=== PATIENT | female | born 1975 | race Caucasian/White ===

== ENCOUNTER 2021-01-09 14:29 | Emergency (ER) | payer OTHER, SELFPAY ==
--- NOTE | ~2021-01-09 | US_ITS ---
EXAMINATION: LEFT LOWER EXTREMITY DEEP VENOUS ULTRASOUND CLINICAL INFORMATION: Left lower extremity edema. Erythema. COMPARISON: None. TECHNIQUE: Duplex Doppler imaging with compression maneuvers were performed of the left lower extremity deep venous system. FINDINGS: The visualized common femoral, femoral and popliteal veins demonstrate normal compressibility and color flow without evidence of venous thrombosis. Visualized portions of the calf veins demonstrate normal color fill-in suggesting patency. There is no evidence of a Her's cyst. A few mildly prominent but morphologically normal-appearing lymph nodes are noted within the left groin, nonspecific but often times reactive. US/US venous duplex LE LT IMPRESSION: No evidence of deep venous thrombosis involving the left lower extremity.
[2021-01-09 14:32] VITALS: BP 149/62; PULSE 87; RESP 18; TEMP 36.8; O2SAT 97; BMI 39.4
[2021-01-09] MEDS: Acetaminophen 325 MG TABLET 650 MG PO (16:23)
[2021-01-09] MEDS: oxyCODONE HCl Immed Release 5 MG TABLET PO (16:23)
[2021-01-09] MEDS: Ibuprofen 800 MG TABLET PO (16:23)
--- NOTE | 2021-01-09 16:23 | ED_ITS ---
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 Denies any fevers, chest pain, shortness of breath, dyspnea on exertion, orthopnea, palpitations, any trauma, recent immobilization or surgery or history of DVT or PE or any other symptoms complaints or concerns at this time. Patient denies recent travel. Denies recent illness. Denies history of gout. MD Complaint: extremity pain Onset (ago): day(s) (Since last night worse today) Pain Consistency: constant Location: left and lower extremity Severity scale (1-10): >10 Quality: constant Radiation: none Relieving factors: nothing Exacerbating factors: weight bearing, walking and palpation Associated symptoms: denies other symptoms Related Data Previous Rx's Medication Instructions Recorded acetaminophen [Tylenol Extra 1,000 mg PO QID PRN #14 tab 01/09/21 Strength] cephalexin 500 mg PO BID 10 Days #20 cap 01/09/21 doxycycline monohydrate 100 mg PO BID 10 Days #20 cap 01/09/21 ibuprofen 800 mg PO Q8H PRN #14 tab 01/09/21 oxycodone 5 mg PO BID PRN #14 tab 01/09/21 Allergies Allergy/AdvReac Type Severity Reaction Status Date / Time insulin lispro Allergy Rash Verified 01/09/21 14:32 [From Humalog U-100 Insulin] Review of Systems Review of Systems: Constitutional : No Weight loss, No Fever, No Chills, No Night Sweats, No Fatigue, No Malaise ENT/Mouth : No Hearing loss, No Ear Pain, No Nasal Congestion, No Sinus Pain, No Hoarseness, No sore throat, No Rhinorrhea, No Swallowing Difficulty Eyes: No Eye Pain, No Swelling, No Redness, No Foreign Body, No Discharge, No Vision Changes Cardiovascular : No Chest Pain, No SOB, No Dyspnea on Exertion, No Orthopnea, No Edema, No Palpitations Respiratory : No Cough, No Sputum, No Wheezing, No Smoke Exposure, No Dyspnea Gastrointestinal : No Nausea, No Vomiting, No Diarrhea, No Constipation, No abdominal Pain, No Hematochezia, No Melena Genitourinary : no irregular bleeding, No Dysuria, No Urinary Frequency, No Hematuria, No Urinary Incontinence, No Urgency, No Flank Pain, No Urinary Flow Changes, No Hesitancy Musculoskeletal : + joint pain/swelling to left lower extremity, No Myalgias Skin : No Skin Lesions, No rash Neuro : No Weakness, No Numbness, No Paresthesias, No Loss of Consciousness, No Dizziness, No Headache Psych : No Anxiety/Panic, No Depression, No SI/HI/AH/VH, No Social Issues, Heme/Lymph: No Bruising, No Bleeding,No Lymphadenopathy Endocrine : No Polyuria, No Polydipsia, No Temperature Intolerance Yes all other systems are reviewed and are negative [facility] Past Medical History Attestation statement: The following information was validated with the patient. Medical History Compartment syndrome Social History Social History Advance Directives: No Advance Directives Information Provided: No Physical Exam Vital Signs: Vital Signs: Last Vital Signs Temp 98.2 F 01/09/21 14:32 Pulse 87 01/09/21 14:32 Resp 18 01/09/21 14:32 BP 149/62 H 01/09/21 14:32 Pulse Ox 97 01/09/21 14:32 Body Mass Index 39.4 vital signs have been reviewed as normal and appeared to be correct. Blood pressure hypertensive at 149/62. Heart rate normal. Respiration rate normal. Temperature normal. Oxygen saturation normal. Appearance: Alert. Oriented X3. No acute distress. Head: Normal external exam. Normocephalic. Atraumatic. Eyes: PERRLA. EOMI. Conjunctiva and sclera normal. Eyelids normal. ENT: Pharynx normal. Uvula midline. Moist mucous membranes. Neck: Normal inspection. Neck supple. FROM. No adenopathy. No meningeal signs. No neck mass noted. CVS: Normal heart rate and rhythm. Heart sound normal. No murmurs noted. Pulses normal throughout. Pulses intact to bilateral lower extremities including dorsalis pedis. Respiratory: No respiratory distress. Painless inspiration. Breath sounds normal. No wheezes/rales/rhonchi noted. Chest nontender. No accessory muscle usage noted or decreased air movement noted. Back: Full range of motion noted. Skin: Skin warm and dry. Normal skin color. Normal skin turgor. No rashes/lesions/lacerations noted. Extremities: See below for pictures of left lower extremity- To left lower extremity patient has moderate erythema with soft tissue swelling and moderate tenderness to palpation with associated calf tenderness. No pitting edema is noted. Right leg appears normal no signs of infection or tenderness is noted. No lower extremity edema to right leg. Otherwise all other Extremities exhibit normal range of motion and nontender. Neuro: Oriented X 3. No motor deficit. No sensory deficit. Reflexes normal. 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 - on exam patient is alert and oriented x3. Not in any acute distress. No focal neural deficits are noted. Patient is mildly hypertensive at 149/62 otherwise all other vitals are within normal limits. Patient is afebrile. She is not tachycardic. Lungs clear to auscultation. CV RRR. Abdomen soft and nontender. No tenderness to cervical/thoracic or lumbar spine. Patient noted to have moderate cellulitis to left lower extremity. No streaking/induration or fluctuance is noted. Patient has positive distal pulses bilaterally. No pitting edema to lower extremities. - shared medical decision making was made with myself, Dr. Obiren and the patient and we recommended admitting the patient although patient is reluctant and refusing reporting that her kids have been gone for over a week at their father's house and they returned tonight therefore she would rather go home tonight and return tomorrow for recheck although I explained to her that we will obtain labs give her some IV fluids and IV antibiotics then discuss this later on although patient is adamant she wants to go home and does not want to be admitted. - Plan: Labs including ESR/CRP, blood cultures, lactic acid. Obtain an ultrasound of left lower extremity. Provide a L of IV fluids, 650 mg of Tylenol, 800 mg of Motrin and 5 mg of oxycodone and 2 g of Rocephin then re- evaluate. MDM - Extremity (Nontraumatic) Medical Records Attestation: I reviewed the patient's medical records. Lab Data Attestation: I reviewed the patient's lab results. Critical Care Time Critical Care Time Critical Care Time: Yes Total Critical Care Time: 60 Attestation: I personally attest to this time spent taking care of the patient Discharge Plan Discharge Clinical Impression: Cellulitis Instructions: Cellulitis (ED) Prescriptions: New ibuprofen 800 mg tablet 800 mg PO Q8H PRN (Reason: pain) Qty: 14 RF: 0 acetaminophen [Tylenol Extra Strength] 500 mg tablet 1,000 mg PO QID PRN (Reason: fever or pain) Qty: 14 RF: 0 doxycycline monohydrate 100 mg capsule 100 mg PO BID 10 Days Qty: 20 RF: 0 cephalexin 500 mg capsule 500 mg PO BID 10 Days Qty: 20 RF: 0 oxycodone 5 mg tablet 5 mg PO BID PRN (Reason: pain) Qty: 14 RF: 0 Referrals: Carmen George PA [Emergency Midlevel Provider] - 1 day (For recheck cellulitis) Mark Morfin MD [Primary Care Provider] - 2 days Stand Alone Forms: Work/School Release Print Language: Maltese
[2021-01-09] MEDS: 0.9 % Sodium Chloride 1,000 ML 999 ML IVCONT (16:25)
[2021-01-09] MEDS: cefTRIAXone sodium 2 GM in 0.9 % Sodium Chloride 50 ML IV (16:26)
[2021-01-09 16:40] LABS: Basophils Absolute Auto 0.1 X10*3/uL (0.0-0.2); Basophils Percent Auto 0.7 % (0-2); Eosinophils Absolute Auto 0.2 X10*3/uL (0.0-0.4); Eosinophils Percent Auto 2.1 % (0-4); Hematocrit 39.7 % (37-47); Imm Gran Abs Auto 0.13 X10*3/uL (0.00-0.03); Imm Gran Pct Auto 1.2 % (0.0-0.4); Lymphocytes Percent Auto 18.2 % (20-40); MANUAL DIFF FLAG SCAN; Mean Corpuscular HGB Conc 32.7 g/dl (31.0-35.0); Mean Corpuscular Volume 88.4 fL (80-98); Mean Platelet Volume 10.4 fL (9.4-12.3); Monocytes Absolute Auto 1.7 X10*3/uL (0.1-1.2); Monocytes Percent Auto 14.9 % (2-11); Neutrophils Percent Auto 62.9 % (45-73); Platelet Count 214 X10*3/uL (160-400); Red Blood Count 4.49 X10*6/uL (4.20-5.50); Red Cell Distribution Width 12.3 % (11.0-16.0); SCAN SMEAR FLAG 1; White Blood Count 11.1 X10*3/uL (4.8-10.8)
[2021-01-09 16:41] VITALS: BP 123/68; PULSE 83; RESP 18; TEMP 36.7; O2SAT 96
[2021-01-09 16:47] LABS: Prothrombin Time 11.4 SEC (10.8-13.0)
[2021-01-09 16:56] LABS: Lactic Acid 1.9 mmol/L (0.5-2.0)
[2021-01-09 17:00] LABS: SLIDE REVIEW VERIFIED
[2021-01-09 17:08] LABS: Alanine Aminotransferase 17 U/L (0-31); Albumin Level 3.9 g/dL (3.5-5.0); Alkaline Phosphatase 74 U/L (39-117); Anion Gap 17 (12-20); Aspartate Amino Transferase 12 U/L (5-31); Bilirubin Direct 0.2 mg/dL (0.0-0.5); Bilirubin Total 0.5 mg/dL (0.0-1.0); Blood Urea Nitrogen 15 mg/dL (9-16); C Reactive Protein 19.39 mg/dL (< or = 0.50); Calcium 8.5 mg/dL (8.4-10.2); Carbon Dioxide 22 mmol/L (22-29); Chloride 97 mmol/L (96-108); Creatinine Clr Calc Pharmacy 74.9; Estimated Glomerular Filt Rate 52; Glucose Random 560 mg/dL (60-115); Magnesium 2.4 mg/dL (1.6-2.6); Potassium 4.3 mmol/L (3.3-5.1); Sodium 132 mmol/L (135-145); Total Protein 6.4 g/dL (6.5-8.0)
[2021-01-09 17:46] LABS: B Type Natriuretic Peptide < 10 pg/mL (<100)
[2021-01-09 17:47] LABS: Erythrocyte Sedimentation Rate 28 MM/HR (0-20)
== END 2021-01-09 17:46 | disposition home or self-care (01) ==
PROVIDERS: Physician Assistant Medical; Emergency Provider Emergency Medicine; PCP Internal Medicine
DX: R60.0 Localized edema (principal); L03.116 Cellulitis of left lower limb; M79.605 Pain in left leg; Z79.899 Other long term (current) drug therapy
CPT/HCPCS: 36415; 80048; 80076; 83605; 83735; 83880; 85025; 85610; 85652; 86140; 87040; 93971; 96361; 96365; 99283; 99285; J0696

== ENCOUNTER 2021-02-21 01:28 | Emergency (ER) | payer SELFPAY ==
[2021-02-21] VITALS (7 sets, daily range): BP systolic 111–151; BP diastolic 57–88; PULSE 94–116; RESP 12–21; TEMP 37.1–38.2; O2SAT 96–100; BMI 37.8
--- NOTE | ~2021-02-21 | CT_ITS ---
EXAMINATION: CT EXTREMITY WITHOUT AND WITH CONTRAST, LEFT LOWER CLINICAL INFORMATION: Redness and swelling. Concern for necrotizing fasciitis. COMPARISON: None TECHNIQUE: Multidetector CT imaging of the left lower extremity was performed from the knee through the ankle before and after the administration of 85 mL Omnipaque 350 intravenous contrast. Coronal and sagittal reformats are reviewed. This CT examination was performed using dose optimization techniques as appropriate, variously including the following: *Automated exposure control *Adjustment of mA and/or kV according to patient size (this includes techniques or standardized protocols for targeted exams where dose is matched to indication/reason for exam; i.e. extremities or head) *Use of iterative reconstruction technique DLP: 598 mGy-cm FINDINGS: There is subcutaneous fat stranding present along the anterior and lateral compartments of the lower leg as well as medial to the distal soleus. Cholecystectomy fluid present along the distal medial aspect of the tibia, superficial to the fascia overlying the flexor digitorum and hallucis longus tendons. No soft tissue gas is present. There is no fluid within the intermuscular fascial planes. Musculature of the left lower extremity is normal in bulk and attenuation. No drainable fluid collections. No periosteal reaction, or cortical destruction to suggest osteomyelitis. CT/CT lower leg LT wo/w con IMPRESSION: No CT imaging evidence of necrotizing fasciitis. Subcutaneous fat stranding present along the lateral lower calf and medial to the calf and ankle which could be compatible cellulitis. No drainable collection.
--- NOTE | 2021-02-21 02:21 | ED.SKABFB ---
HPI - Skin/Abscess/Foreign Bdy General Chief complaint: Skin/Abscess/Foreign Body Stated complaint: cellulitis in leg Time Seen by Provider: 02/21/21 01:57 Source: patient Mode of arrival: ambulatory History of Present Illness HPI narrative: 45-year-old female significant past medical history of type 1 diabetes who presents with onset of left lower extremity discomfort earlier in the evening yesterday just prior to going to sleep and then states that she was awoken from sleep at 1:00 a.m. with significant pain and then over the course of an hour until presentation had increasing redness and swelling and now is unable to bear weight on that extremity. She denies any numbness/tingling to that lower extremity and endorses full sensation but states she is having pain on both dorsal and plantar flexion as well as she cannot tolerate even touching the skin. Otherwise, she denies any fevers, chills at this time. Further history is that patient has had prior compartment syndrome of bilateral lower extremities in 2014 that she was told was associated with her exercise of [employer]. In addition, patient was seen this emergency room for cellulitis 01/09 and was placed on a course of p.o. antibiotics. Related Data Home Medications Medication Instructions Recorded Confirmed blood sugar diagnostic [Contour 02/21/21 02/21/21 Next Test Strips] hydroxyzine HCl 1 tab PO QID 02/21/21 02/21/21 insulin aspart U-100 [Novolog See Protocol SUBCUT TIDAC 02/21/21 02/21/21 U-100 Insulin aspart] lamotrigine 1 tab PO DAILY 02/21/21 02/21/21 paroxetine HCl 20 mg PO DAILY 02/21/21 02/21/21 Previous Rx's Medication Instructions Recorded cephalexin 500 mg PO QID 10 Days #40 cap 02/21/21 doxycycline hyclate 100 mg PO BID 10 Days #20 cap 02/21/21 Allergies Allergy/AdvReac Type Severity Reaction Status Date / Time insulin lispro Allergy Rash Verified 02/21/21 01:37 [From Humalog U-100 Insulin] Review of Systems Review of Systems: Pertinent positives and negatives as stated in HPI 10 point review of systems is otherwise negative. PMF Past Medical History Source: nursing notes reviewed Medical History Compartment syndrome Social History Social History Alcohol intake: never Smoking Status: Smoker, status unknown Use of substances other than those prescribed or required for medical reasons: No Advance Directives: No Advance Directives Information Provided: No Physical Exam Vital Signs: Vital Signs: Last Vital Signs Temp 98.7 F 02/21/21 04:56 Pulse 97 02/21/21 04:56 Resp 21 H 02/21/21 04:56 BP 111/57 L 02/21/21 04:56 Pulse Ox 96 02/21/21 04:56 Body Mass Index 37.8 VITAL SIGNS: Reviewed. GENERAL: Well developed, well nourished, moderate distress. HEAD: Normocephalic/atraumatic EYES: PERRLA, EOMI OROPHARYNX: no oral lesions noted, posterior pharynx clear NECK: Supple, no adenopathy LUNGS: Normal breath sounds. No adventitious sounds or accessory muscle use. SpO2<97> CARDIOVASCULAR: Regular rate and rhythm without noted murmurs ABDOMEN: Soft, non-tender, non-distended with bowel sounds. LEFT LOWER EXTREMITY: Edema, erythema, scars consistent with prior fasciotomy, palpable DP/PT, patient unable to tolerate touching the leg although no crepitus is appreciated, sensation intact leg is hot to touch, outlined area of redness with skin marker NEUROLOGIC: Alert and oriented x 4. Strength and sensation to light touch were grossly intact x 4. Course Course Course Narrative: 45-year-old female with history and clinical presentation highly concerning for possible necrotizing fasciitis given the rapid development and current symptoms. Low clinical suspicion for osteomyelitis, compartment syndrome. Review of all investigations consistent with sepsis, cellulitis of left lower leg. CT scan negative for necrotizing fasciitis and this case was discussed with surgical services. Case discussed with inpatient hospitalist who is agreeable for admission. Patient refusing to stay and discussed with patient the risks and benefits of signing out against medical advice given her current infection of the left lower extremity in conjunction with her underlying diabetes. She acknowledges that the risks include life-threatening infection and ultimately could lead to . MDM - Skin/Abscess/Foreign Bdy Lab Data Result diagrams: 02/21/21 02:19 02/21/21 02:19 Labs: Lab Results 05/09/21 05/09/21 05/09/21 Range/Units 02:19 02:19 02:19 WBC 21.9 H (4.8-10.8) X10*3/uL RBC 4.74 (4.20-5.50) X10*6/uL Hgb 13.9 (12.0-16.0) g/dl Hct 41.7 (37-47) % MCV 88.0 (80-98) fL MCH 29.3 (27.0-33.0) pg MCHC 33.3 (31.0-35.0) g/dl RDW 12.4 (11.0-16.0) % Plt Count 298 D (160-400) X10*3/uL MPV 9.8 (9.4-12.3) fL Immature Gran % (Auto) 0.7 H (0.0-0.4) % Neut % (Auto) 84.2 H (45-73) % Lymph % (Auto) 5.9 L (20-40) % [place] % (Auto) 8.1 (2-11) % Eos % (Auto) 0.6 (0-4) % Baso % (Auto) 0.5 (0-2) % Lymph # (Auto) 1.3 (1.2-4.9) X10*3/uL [place] # (Auto) 1.8 H (0.1-1.2) X10*3/uL Eos # (Auto) 0.1 (0.0-0.4) X10*3/uL Baso # (Auto) 0.1 (0.0-0.2) X10*3/uL Abs Immat Gran (auto) 0.15 H (0.00-0.03) X10*3/uL Absolute Neuts (auto) 18.5 H (2.0-8.3) X10*3/uL Absolute Nucleated RBC 0.000 (0.0-0.012) X10*3/uL Nucleated RBC % (auto) 0.0 (0.0-0.2) /100WBC Smear Tech's Comments VERIFIED ESR (0-20) MM/HR PT 11.1 (10.8-13.0) SEC INR 0.9 (0.9-1.1) Sodium 136 (135-145) mmol/L Potassium 4.4 (3.3-5.1) mmol/L Chloride 101 (96-108) mmol/L Carbon Dioxide 25 (22-29) mmol/L Anion Gap 14 (12-20) BUN 15 (9-16) mg/dL Creatinine 0.93 (0.5-1.4) mg/dL Estim Creat Clear Calc 89.5 Estimated GFR > 60 POC Glucose (60-115) mg/dL Random Glucose 157 H D (60-115) mg/dL Lactic Acid (0.5-2.0) mmol/L Calcium 9.2 D (8.4-10.2) mg/dL Total Bilirubin 0.6 (0.0-1.0) mg/dL AST 35 H D (5-31) U/L ALT 34 H (0-31) U/L Alkaline Phosphatase 78 (39-117) U/L Total Creatine Kinase 238 H (26-140) U/L C-Reactive Protein 1.25 H (< or = 0.50) mg/dL Total Protein 6.9 (6.5-8.0) g/dL Albumin 4.4 (3.5-5.0) g/dL Urine Color Urine Appearance Urine pH (5.0-8.0) Ur Specific Downs (1.005-1.025) Urine Protein (NEG-TRACE) MG/DL Urine Glucose (UA) (NEG) MG/DL Urine Ketones (NEG) MG/DL Urine Blood (NEG) Urine Nitrite (NEG) Ur Leukocyte Esterase (NEG) Acetone, Qual Negative (Negative) COVID-19 (RAMY) (Negative) COVID-19 Clin Com 02/21/21 02/21/21 02/21/21 Range/Units 02:19 02:19 02:19 WBC (4.8-10.8) X10*3/uL RBC (4.20-5.50) X10*6/uL Hgb (12.0-16.0) g/dl Hct (37-47) % MCV (80-98) fL MCH (27.0-33.0) pg MCHC (31.0-35.0) g/dl RDW (11.0-16.0) % Plt Count (160-400) X10*3/uL MPV (9.4-12.3) fL Immature Gran % (Auto) (0.0-0.4) % Neut % (Auto) (45-73) % Lymph % (Auto) (20-40) % [place] % (Auto) (2-11) % Eos % (Auto) (0-4) % Baso % (Auto) (0-2) % Lymph # (Auto) (1.2-4.9) X10*3/uL [place] # (Auto) (0.1-1.2) X10*3/uL Eos # (Auto) (0.0-0.4) X10*3/uL Baso # (Auto) (0.0-0.2) X10*3/uL Abs Immat Gran (auto) (0.00-0.03) X10*3/uL Absolute Neuts (auto) (2.0-8.3) X10*3/uL Absolute Nucleated RBC (0.0-0.012) X10*3/uL Nucleated RBC % (auto) (0.0-0.2) /100WBC Smear Tech's Comments ESR 7 (0-20) MM/HR PT (10.8-13.0) SEC INR (0.9-1.1) Sodium Cancelled (135-145) mmol/L Potassium Cancelled (3.3-5.1) mmol/L Chloride Cancelled (96-108) mmol/L Carbon Dioxide Cancelled (22-29) mmol/L Anion Gap Cancelled (12-20) BUN Cancelled (9-16) mg/dL Creatinine Cancelled (0.5-1.4) mg/dL Estim Creat Clear Calc Cancelled Estimated GFR Cancelled POC Glucose (60-115) mg/dL Random Glucose Cancelled (60-115) mg/dL Lactic Acid 1.8 (0.5-2.0) mmol/L Calcium Cancelled (8.4-10.2) mg/dL Total Bilirubin Cancelled (0.0-1.0) mg/dL AST Cancelled (5-31) U/L ALT Cancelled (0-31) U/L Alkaline Phosphatase Cancelled (39-117) U/L Total Creatine Kinase (26-140) U/L C-Reactive Protein (< or = 0.50) mg/dL Total Protein Cancelled (6.5-8.0) g/dL Albumin Cancelled (3.5-5.0) g/dL Urine Color Urine Appearance Urine pH (5.0-8.0) Ur Specific Downs (1.005-1.025) Urine Protein (NEG-TRACE) MG/DL Urine Glucose (UA) (NEG) MG/DL Urine Ketones (NEG) MG/DL Urine Blood (NEG) Urine Nitrite (NEG) Ur Leukocyte Esterase (NEG) Acetone, Qual (Negative) COVID-19 (RAMY) (Negative) COVID-19 Clin Com 02/21/21 02/21/21 02/21/21 Range/Units 02:55 03:17 03:25 WBC (4.8-10.8) X10*3/uL RBC (4.20-5.50) X10*6/uL Hgb (12.0-16.0) g/dl Hct (37-47) % MCV (80-98) fL MCH (27.0-33.0) pg MCHC (31.0-35.0) g/dl RDW (11.0-16.0) % Plt Count (160-400) X10*3/uL MPV (9.4-12.3) fL Immature Gran % (Auto) (0.0-0.4) % Neut % (Auto) (45-73) % Lymph % (Auto) (20-40) % [place] % (Auto) (2-11) % Eos % (Auto) (0-4) % Baso % (Auto) (0-2) % Lymph # (Auto) (1.2-4.9) X10*3/uL [place] # (Auto) (0.1-1.2) X10*3/uL Eos # (Auto) (0.0-0.4) X10*3/uL Baso # (Auto) (0.0-0.2) X10*3/uL Abs Immat Gran (auto) (0.00-0.03) X10*3/uL Absolute Neuts (auto) (2.0-8.3) X10*3/uL Absolute Nucleated RBC (0.0-0.012) X10*3/uL Nucleated RBC % (auto) (0.0-0.2) /100WBC Smear Tech's Comments ESR (0-20) MM/HR PT (10.8-13.0) SEC INR (0.9-1.1) Sodium (135-145) mmol/L Potassium (3.3-5.1) mmol/L Chloride (96-108) mmol/L Carbon Dioxide (22-29) mmol/L Anion Gap (12-20) BUN (9-16) mg/dL Creatinine (0.5-1.4) mg/dL Estim Creat Clear Calc Estimated GFR POC Glucose 115 (60-115) mg/dL Random Glucose (60-115) mg/dL Lactic Acid (0.5-2.0) mmol/L Calcium (8.4-10.2) mg/dL Total Bilirubin (0.0-1.0) mg/dL AST (5-31) U/L ALT (0-31) U/L Alkaline Phosphatase (39-117) U/L Total Creatine Kinase (26-140) U/L C-Reactive Protein (< or = 0.50) mg/dL Total Protein (6.5-8.0) g/dL Albumin (3.5-5.0) g/dL Urine Color YELLOW Urine Appearance CLEAR Urine pH 7.5 (5.0-8.0) Ur Specific Downs 1.015 (1.005-1.025) Urine Protein NEG (NEG-TRACE) MG/DL Urine Glucose (UA) NEG (NEG) MG/DL Urine Ketones NEG (NEG) MG/DL Urine Blood NEG (NEG) Urine Nitrite NEG (NEG) Ur Leukocyte Esterase NEG (NEG) Acetone, Qual (Negative) COVID-19 (RAMY) Negative (Negative) COVID-19 Clin Com See Note ECG Data Attestation: I personally reviewed and interpreted this ECG as follows: Prior ECG tracings: not available for review Interpretation: Normal sinus rhythm, HR-98, no evidence of acute ischemia, DE/QRS/QTC are within normal limits. Discharge Plan Discharge Clinical Impression: Sepsis, Cellulitis Patient Disposition: Left Against Medical Advice Instructions: Cellulitis (ED) Additional Instructions: 1. Please resume all home medications as prescribed. 2. Please follow-up with your primary care provider for re-evaluation in the next 24-48 hours. 3. You have been provided with oral antibiotics for your infection. Return to the emergency room for any acute worsening of your symptoms. Prescriptions: New doxycycline hyclate 100 mg capsule 100 mg PO BID 10 Days Qty: 20 RF: 0 cephalexin 500 mg capsule 500 mg PO QID 10 Days Qty: 40 RF: 0 No Action lamotrigine 150 mg tablet 1 tab PO DAILY RF: 0 (DME) Contour Next Test Strips Strip 1 strip MISCELLANEOUS [id number] RF: 0 insulin aspart U-100 [Novolog U-100 Insulin aspart] 100 unit/mL solution See Protocol sliding scale dose subcut TIDAC RF: 0 paroxetine HCl 20 mg tablet 20 mg PO DAILY RF: 0 hydroxyzine HCl 25 mg tablet 1 tab PO QID RF: 0 Referrals: Mark Morfin MD [Primary Care Provider] - 2 days (Re-evaluation and outpatient management after seen in the emergency department and diagnosed with sepsis and cellulitis however patient signed out AMA. She was provided with a 10 day course of doxycycline and cephalexin.) Stand Alone Forms: Against Medical Advice
[2021-02-21 02:27] LABS: Basophils Absolute Auto 0.1 X10*3/uL (0.0-0.2); Basophils Percent Auto 0.5 % (0-2); Eosinophils Absolute Auto 0.1 X10*3/uL (0.0-0.4); Eosinophils Percent Auto 0.6 % (0-4); Hematocrit 41.7 % (37-47); Hemoglobin 13.9 g/dl (12.0-16.0); Imm Gran Abs Auto 0.15 X10*3/uL (0.00-0.03); Imm Gran Pct Auto 0.7 % (0.0-0.4); Lymphocytes Absolute Auto 1.3 X10*3/uL (1.2-4.9); Lymphocytes Percent Auto 5.9 % (20-40); MANUAL DIFF FLAG SCAN; Mean Corpuscular HGB Conc 33.3 g/dl (31.0-35.0); Mean Corpuscular Hemoglobin 29.3 pg (27.0-33.0); Mean Platelet Volume 9.8 fL (9.4-12.3); Monocytes Absolute Auto 1.8 X10*3/uL (0.1-1.2); Monocytes Percent Auto 8.1 % (2-11); Neutrophils Absolute Auto 18.5 X10*3/uL (2.0-8.3); Neutrophils Percent Auto 84.2 % (45-73); Platelet Count 298 X10*3/uL (160-400); Red Blood Count 4.74 X10*6/uL (4.20-5.50); Red Cell Distribution Width 12.4 % (11.0-16.0); SCAN SMEAR FLAG 1; White Blood Count 21.9 X10*3/uL (4.8-10.8)
[2021-02-21 02:32] LABS: INTERNATIONAL NORM RATIO 0.9 (0.9-1.1); Prothrombin Time 11.1 SEC (10.8-13.0)
[2021-02-21] MEDS: Piperacillin Sodium/Tazobactam 3.375 GM in 0.9 % Sodium Chloride 50 ML IV (02:38)
[2021-02-21] MEDS: fentaNYL citrate/PF 100 MCG/2 ML VIAL 25 MCG IVPUSH (02:48)
[2021-02-21 02:52] LABS: Acetone, serum QL Negative (Negative)
[2021-02-21] MEDS: Clindamycin Phosphate/D5W 900 MG/50 ML PIGGYBACK 50 MG IV (02:58)
[2021-02-21 03:02] LABS: Alanine Aminotransferase 34 U/L (0-31); Albumin Level 4.4 g/dL (3.5-5.0); Alkaline Phosphatase 78 U/L (39-117); Anion Gap 14 (12-20); Aspartate Amino Transferase 35 U/L (5-31); Bilirubin Total 0.6 mg/dL (0.0-1.0); Blood Urea Nitrogen 15 mg/dL (9-16); Calcium 9.2 mg/dL (8.4-10.2); Carbon Dioxide 25 mmol/L (22-29); Chloride 101 mmol/L (96-108); Creatinine Clr Calc Pharmacy 89.5; Estimated Glomerular Filt Rate > 60; Glucose Random 157 mg/dL (60-115); Potassium 4.4 mmol/L (3.3-5.1); Sodium 136 mmol/L (135-145); Total Protein 6.9 g/dL (6.5-8.0)
--- NOTE | 2021-02-21 03:09 | PC.NURSE ---
Pt's left leg is extremely hot and tight to touch. reddened area marked by purple pen. Pt medicated for pain. Md aware of temperature and sepsis concerns. IVs: 18g Right fossa, 18g left wrist. IVF infusing well. Pt tolerating toileting on bed chen. Plan to go to ct at this time for imaging.
[2021-02-21 03:15] LABS: C Reactive Protein 1.25 mg/dL (< or = 0.50)
[2021-02-21 03:23] LABS: Glucose, Whole Blood 115 mg/dL (60-115)
[2021-02-21 03:24] LABS: SLIDE REVIEW VERIFIED
[2021-02-21 03:24] LABS: COVID-19 Test Negative (Negative); IDNOW Serial# 9DD0AD1C
[2021-02-21 03:30] LABS: Lactic Acid 1.8 mmol/L (0.5-2.0)
[2021-02-21 03:35] LABS: Glucose Urine UA NEG (NEG); Leukocyte Esterase Urine NEG (NEG); Nitrite Urine NEG (NEG); PH 7.5 (5.0-8.0); Specific Gravity - Urine 1.015 (1.005-1.025); Urine Blood NEG (NEG); Urine Ketones NEG (NEG); Urine Protein NEG (NEG-TRACE)
[2021-02-21 03:40] LABS: Erythrocyte Sedimentation Rate 7 MM/HR (0-20)
[2021-02-21] MEDS: Acetaminophen 325 MG TABLET 975 MG PO (03:40)
[2021-02-21 03:41] LABS: Appearance Urine CLEAR; Color Urine YELLOW
[2021-02-21] MEDS: vancomycin HCL 1,000 MG in 0.9 % Sodium Chloride 250 ML 270 MG IV (03:47)
[2021-02-21] MEDS: iohexoL 350 MG/ML 100 ML INFUS..BTL 85 ML IV (03:50)
--- NOTE | 2021-02-21 06:33 | HE.PHANOTE ---
CONFIRMED WITH OVERNIGHT RN THAT PATIENT RECEIVED ONLY 1GM OF VANCO DESPITE MULTIPLE ORDERS (DC'D PER MD) AND PYXIS PULLS
--- NOTE | 2021-02-21 07:57 | ECG_ITS ---
Test Reason : LEG PAIN Blood Pressure : / mmHG Vent. Rate : 098 BPM Atrial Rate : 098 BPM P-R Int : 138 ms QRS Dur : 084 ms QT Int : 332 ms P-R-T Axes : 062 035 057 degrees QTc Int : 423 ms Normal sinus rhythm Normal ECG No previous ECGs available Referred By: Kimberly Mcpherson Electronically Signed By:Jesus Hopkins
== END 2021-02-21 07:21 | disposition left against medical advice (07) ==
PROVIDERS: Emergency Provider Student in an Organized Health Care Education/Training Program; PCP Internal Medicine
DX: L03.116 Cellulitis of left lower limb (principal); A41.9 Sepsis, unspecified organism; Z79.899 Other long term (current) drug therapy; Z20.822 Contact with and (suspected) exposure to COVID-19
CPT/HCPCS: 36415; 73702; 80053; 81003; 82009; 82550; 82947; 83605; 85025; 85610; 85652; 86140; 87040; 87635; 93005; J2543; J3010; J3370; Q9967

== ENCOUNTER 2021-02-21 16:11 | Inpatient (IN) | payer OTHER, SELFPAY ==
[2021-02-21 16:27] VITALS: BP 123/58; PULSE 87; RESP 18; TEMP 37.6; O2SAT 96; BMI 37.8
[2021-02-21 18:00] VITALS: BP 112/80; PULSE 82; RESP 18; O2SAT 100
--- NOTE | 2021-02-21 18:43 | ED_ITS ---
HPI - General Adult General Chief complaint: General Medical Stated complaint: Leg infection Time Seen by Provider: 02/21/21 18:00 Source: patient Mode of arrival: ambulatory History of Present Illness HPI narrative: 45-year-old female PMHx of type 1 DM, compartment syndrome in bilateral lower extremities in 2015 s/p fasciotomy who presents with worsening LLE cellulitis and discomfort since yesterday. Patient was seen and treated in the ED yesterday for similar complaints with high concern for necrotizing fasciitis, diagnosed with cellulitis, admission was recommended however patient refused due to childcare issues. Denies taking prescribed p.o. antibiotic doses today. Reports subjective fever/chills in discomfort with ambulation/movement. Denies numbness, tingling, weakness Related Data Home Medications Medication Instructions Recorded Confirmed blood sugar diagnostic [Contour 02/21/21 02/21/21 Next Test Strips] hydroxyzine HCl 1 tab PO QID 02/21/21 02/21/21 insulin aspart U-100 [Novolog See Protocol SUBCUT TIDAC 02/21/21 02/21/21 U-100 Insulin aspart] lamotrigine 1 tab PO DAILY 02/21/21 02/21/21 paroxetine HCl 20 mg PO DAILY 02/21/21 02/21/21 Previous Rx's Medication Instructions Recorded cephalexin 500 mg PO QID 10 Days #40 cap 02/21/21 doxycycline hyclate 100 mg PO BID 10 Days #20 cap 02/21/21 Allergies Allergy/AdvReac Type Severity Reaction Status Date / Time insulin lispro Allergy Rash Verified 02/21/21 01:37 [From Humalog U-100 Insulin] Review of Systems Review of Systems: Constitutional: +Subj Fever, + Chills Cardiovascular: No Chest Pain, No SOB Respiratory: No Cough, No Dyspnea Gastrointestinal: No Nausea, No Vomiting, No Diarrhea, No Constipation, No Abdominal pain Musculoskeletal: + joint pain, No Myalgias, + Joint Swelling Skin: No Skin Lesions, + rash Neuro: No Weakness, No Numbness, No Paresthesias PMFSH Past Medical History Attestation statement: The following information was validated with the patient. Medical History (Updated 02/21/21 @ 19:50 by SHERIDAN Cardona) Compartment syndrome Diabetes Surgical History (Updated 02/21/21 @ 16:30 by Mica Gtz RN) H/O: hysterectomy Social History Social History Alcohol intake: current Alcohol intake frequency: other Smoking Status: Current every day smoker Smoked in Last 30 Days: Yes Use of substances other than those prescribed or required for medical reasons: No Advance Directives: No Advance Directives Information Provided: No Patient : No Physical Exam Vital Signs: Vital Signs: Last Vital Signs Temp 99.6 F 02/21/21 16:27 Pulse 82 02/21/21 18:00 Resp 18 02/21/21 18:00 BP 112/80 02/21/21 18:00 Pulse Ox 100 02/21/21 18:00 Body Mass Index 37.8 Const: Other: Appears in pain General: cooperative and healthy appearing Orientation/consciousness: patient oriented x3 Limitations: no limitations HENMT: Head: Yes normal to inspection Ears: hearing grossly normal bilaterally General nose exam: Normal external nose present Face and sinus: Yes normal facial exam Eyes: General: appearance normal, both eyes and all related structures EOM: EOMs intact bilaterally Neck: Neck: Yes normal visual inspection Resp: Effort & Inspection: normal respiratory effort Cardio: Rate: regular rate Peripheral pulses: posterior tibial pulses present and dorsalis pedis present GI: Inspection: Yes normal to inspection Skin: Wounds: no wounds Neuro: Other: Ambulating with limping gait General: patient oriented x3 Extrem: Other: Left lower extremity with mild edema, erythema which is extending past previously marked lines, previous scars, warmth to touch, +ttp, no crepitus/fluctuance or induration. Sensation intact to light touch, pulses intact Course Course Course Narrative: -improved leukocytosis of 13.9, CRP worsening from yesterday to 12.9. Lactic negative Plan to admit for further management Medical Decision Making MDM Narrative Medical decision making narrative: 45-year-old female PMHx of type 1 DM, compartment syndrome in bilateral lower extremities in 2015 s/p fasciotomy who presents with worsening LLE cellulitis and discomfort since yesterday. Patient was seen and treated in the ED yesterday for similar complaints with high concern for necrotizing fasciitis, diagnosed with cellulitis. On exam low-grade temp 99.6?, appears in pain, concern for worsening cellulitis. No evidence of necrotizing fasciitis on CT yesterday. Compartments soft Plan: Labs, lactic, blood cultures, IV antibiotics, admission Lab Data Result diagrams: 02/21/21 18:39 02/21/21 18:39 Labs: Lab Results 02/21/21 02/21/21 02/21/21 Range/Units 18:38 18:38 18:39 WBC 13.9 H (4.8-10.8) X10*3/uL RBC 4.50 (4.20-5.50) X10*6/uL Hgb 13.1 (12.0-16.0) g/dl Hct 39.8 (37-47) % MCV 88.4 (80-98) fL MCH 29.1 (27.0-33.0) pg MCHC 32.9 (31.0-35.0) g/dl RDW 12.5 (11.0-16.0) % Plt Count 251 (160-400) X10*3/uL MPV 9.6 (9.4-12.3) fL Immature Gran % (Auto) 0.5 H (0.0-0.4) % Neut % (Auto) 76.1 H (45-73) % Lymph % (Auto) 11.8 L (20-40) % [place] % (Auto) 10.0 (2-11) % Eos % (Auto) 1.0 (0-4) % Baso % (Auto) 0.6 (0-2) % Lymph # (Auto) 1.6 (1.2-4.9) X10*3/uL [place] # (Auto) 1.4 H (0.1-1.2) X10*3/uL Eos # (Auto) 0.1 (0.0-0.4) X10*3/uL Baso # (Auto) 0.1 (0.0-0.2) X10*3/uL Abs Immat Gran (auto) 0.07 H (0.00-0.03) X10*3/uL Absolute Neuts (auto) 10.5 H (2.0-8.3) X10*3/uL Absolute Nucleated RBC 0.000 (0.0-0.012) X10*3/uL Nucleated RBC % (auto) 0.0 (0.0-0.2) /100WBC Hold Blue Top Sodium (135-145) mmol/L Potassium (3.3-5.1) mmol/L Chloride (96-108) mmol/L Carbon Dioxide (22-29) mmol/L Anion Gap (12-20) BUN (9-16) mg/dL Creatinine (0.5-1.4) mg/dL Estim Creat Clear Calc Estimated GFR Random Glucose (60-115) mg/dL Lactic Acid 0.8 (0.5-2.0) mmol/L Calcium (8.4-10.2) mg/dL Magnesium 2.2 (1.6-2.6) mg/dL Total Bilirubin (0.0-1.0) mg/dL Direct Bilirubin (0.0-0.5) mg/dL AST (5-31) U/L ALT (0-31) U/L Alkaline Phosphatase (39-117) U/L C-Reactive Protein (< or = 0.50) mg/dL Total Protein (6.5-8.0) g/dL Albumin (3.5-5.0) g/dL COVID-19 ([facility]) (Negative) COVID-19 Clin Com 02/21/21 02/21/21 02/21/21 Range/Units 18:39 18:39 18:39 WBC (4.8-10.8) X10*3/uL RBC (4.20-5.50) X10*6/uL Hgb (12.0-16.0) g/dl Hct (37-47) % MCV (80-98) fL MCH (27.0-33.0) pg MCHC (31.0-35.0) g/dl RDW (11.0-16.0) % Plt Count (160-400) X10*3/uL MPV (9.4-12.3) fL Immature Gran % (Auto) (0.0-0.4) % Neut % (Auto) (45-73) % Lymph % (Auto) (20-40) % [place] % (Auto) (2-11) % Eos % (Auto) (0-4) % Baso % (Auto) (0-2) % Lymph # (Auto) (1.2-4.9) X10*3/uL [place] # (Auto) (0.1-1.2) X10*3/uL Eos # (Auto) (0.0-0.4) X10*3/uL Baso # (Auto) (0.0-0.2) X10*3/uL Abs Immat Gran (auto) (0.00-0.03) X10*3/uL Absolute Neuts (auto) (2.0-8.3) X10*3/uL Absolute Nucleated RBC (0.0-0.012) X10*3/uL Nucleated RBC % (auto) (0.0-0.2) /100WBC Hold Blue Top SEE NOTE Sodium 135 (135-145) mmol/L Potassium 4.0 (3.3-5.1) mmol/L Chloride 102 (96-108) mmol/L Carbon Dioxide 24 (22-29) mmol/L Anion Gap 13 (12-20) BUN 15 (9-16) mg/dL Creatinine 1.13 (0.5-1.4) mg/dL Estim Creat Clear Calc 73.7 Estimated GFR 53 Random Glucose 218 H D (60-115) mg/dL Lactic Acid (0.5-2.0) mmol/L Calcium 8.7 (8.4-10.2) mg/dL Magnesium (1.6-2.6) mg/dL Total Bilirubin 0.5 (0.0-1.0) mg/dL Direct Bilirubin 0.2 (0.0-0.5) mg/dL AST 18 D (5-31) U/L ALT 27 (0-31) U/L Alkaline Phosphatase 73 (39-117) U/L C-Reactive Protein 12.94 H (< or = 0.50) mg/dL Total Protein 6.2 L (6.5-8.0) g/dL Albumin 3.9 (3.5-5.0) g/dL COVID-19 ([facility]) Negative (Negative) COVID-19 Clin Com See Note Discharge Plan Discharge Clinical Impression: Cellulitis Patient Disposition: Admitted As Inpatient Prescriptions: No Action lamotrigine 150 mg tablet 1 tab PO DAILY RF: 0 (DME) Contour Next Test Strips Strip 1 strip MISCELLANEOUS 4-5XD RF: 0 insulin aspart U-100 [Novolog U-100 Insulin aspart] 100 unit/mL solution See Protocol sliding scale dose subcut TIDAC RF: 0 paroxetine HCl 20 mg tablet 20 mg PO DAILY RF: 0 hydroxyzine HCl 25 mg tablet 1 tab PO QID RF: 0 doxycycline hyclate 100 mg capsule 100 mg PO BID 10 Days Qty: 20 RF: 0 cephalexin 500 mg capsule 500 mg PO QID 10 Days Qty: 40 RF: 0
[2021-02-21 18:45] LABS: MANUAL DIFF FLAG NO
[2021-02-21 18:48] LABS: Basophils Absolute Auto 0.1 X10*3/uL (0.0-0.2); Basophils Percent Auto 0.6 % (0-2); Eosinophils Absolute Auto 0.1 X10*3/uL (0.0-0.4); Hematocrit 39.8 % (37-47); Hemoglobin 13.1 g/dl (12.0-16.0); Imm Gran Abs Auto 0.07 X10*3/uL (0.00-0.03); Imm Gran Pct Auto 0.5 % (0.0-0.4); Lymphocytes Absolute Auto 1.6 X10*3/uL (1.2-4.9); Lymphocytes Percent Auto 11.8 % (20-40); Mean Corpuscular HGB Conc 32.9 g/dl (31.0-35.0); Mean Corpuscular Hemoglobin 29.1 pg (27.0-33.0); Mean Corpuscular Volume 88.4 fL (80-98); Mean Platelet Volume 9.6 fL (9.4-12.3); Monocytes Absolute Auto 1.4 X10*3/uL (0.1-1.2); Neutrophils Absolute Auto 10.5 X10*3/uL (2.0-8.3); Neutrophils Percent Auto 76.1 % (45-73); Platelet Count 251 X10*3/uL (160-400); Red Cell Distribution Width 12.5 % (11.0-16.0); White Blood Count 13.9 X10*3/uL (4.8-10.8)
[2021-02-21] MEDS: Piperacillin Sodium/Tazobactam 3.375 GM in 0.9 % Sodium Chloride 50 ML IV (18:58)
[2021-02-21 19:02] LABS: COVID-19 Test Negative (Negative); IDNOW Serial# 9DD0AD1C
[2021-02-21 19:06] LABS: Lactic Acid 0.8 mmol/L (0.5-2.0)
[2021-02-21] MEDS: Clindamycin Phosphate/D5W 900 MG/50 ML PIGGYBACK 50 MG IV (19:12)
[2021-02-21 19:13] LABS: Magnesium 2.2 mg/dL (1.6-2.6)
[2021-02-21 19:25] LABS: Alanine Aminotransferase 27 U/L (0-31); Albumin Level 3.9 g/dL (3.5-5.0); Alkaline Phosphatase 73 U/L (39-117); Anion Gap 13 (12-20); Aspartate Amino Transferase 18 U/L (5-31); Bilirubin Direct 0.2 mg/dL (0.0-0.5); Bilirubin Total 0.5 mg/dL (0.0-1.0); Blood Urea Nitrogen 15 mg/dL (9-16); C Reactive Protein 12.94 mg/dL (< or = 0.50); Calcium 8.7 mg/dL (8.4-10.2); Carbon Dioxide 24 mmol/L (22-29); Chloride 102 mmol/L (96-108); Creatinine Clr Calc Pharmacy 73.7; Estimated Glomerular Filt Rate 53; Glucose Random 218 mg/dL (60-115); Sodium 135 mmol/L (135-145); Total Protein 6.2 g/dL (6.5-8.0)
--- NOTE | 2021-02-21 19:26 | PC.NURSE ---
Patient ordered ice cream for herself, but made aware of NPO status. Ice cream placed in ED freezer with patient label as requested.
[2021-02-21] MEDS: vancomycin HCL 1,250 MG in 0.9 % Sodium Chloride 250 ML 166.67 MG IV (19:39)
[2021-02-21 20:00] LABS: Erythrocyte Sedimentation Rate 16 MM/HR (0-20)
--- NOTE | 2021-02-21 20:20 | PM.IMHP ---
History of Present Illness Date of Service: 02/21/21 Chief Complaint: Leg pain This is a 45-year-old female with past medical history of compartment syndrome, diabetes, presents to the hospital with complaints of left lower extremity erythema, pain and swelling. Patient reports that the symptoms started about 2 days ago after a bowling tournament, she is having progressive redness, worsening pain, and some swelling. She denies any fever but has chills, no abdominal pain nausea or diarrhea, no urinary symptoms. No chest pain or palpitations. No shortness of breath or cough. No headache change in vision. Patient did presents to the hospital on 02/21 but had to leave AMA to take care of her kids and returned few hours later. At the initial presentation she had a temp of a 100.7?, tachycardia, normal respiratory rate and stable blood pressure For WBC count of 13.9, C-reactive protein of 12.9, COVID-19 negative, otherwise unremarkable Patient will management of cellulitis Review of Systems Review of Systems: Yes all other systems are reviewed and are negative [facility] Medical History (Updated 02/22/21 @ 06:04 by Humaira Serna MD) Anxiety Compartment syndrome Diabetes Hyperlipidemia Surgical History H/O: hysterectomy Social History Household Members: Children Housing: Apartment Do you presently have visiting nurse or other home services: No Alcohol intake: current Alcohol intake frequency: other Smoking Status: Current every day smoker Tobacco Type: Cigarette Packs Per Day: 0.5 Cigarettes Per Day: 10.0 Smoked in Last 30 Days: Yes Patient Interested in Nicotine Replacement: No Patient Given Instructions on How to Stop Smoking: No Date Education Initiated: 02/21/21 Use of substances other than those prescribed or required for medical reasons: No Have you been hit, kicked, punched, or otherwise hurt by someone within the past year? If so, by whom?: No Do you feel safe in your current relationship?: Yes Is there a partner from a previous relationship who is making you feel unsafe now?: No Are you made to feel afraid or neglected: No Advance Directives: No Advance Directives Information Provided: No Do you have thoughts of harming others: None Recently lost weight without trying: No Eating poorly because of decreased appetite: No Nutrition Risks: No Nutritional Risk Patient : No Meds Allergies Allergy/AdvReac Type Severity Reaction Status Date / Time insulin lispro Allergy Rash Verified 02/21/21 01:37 [From Humalog U-100 Insulin] Active Medications: Current Medications Generic Name Dose Route Start Last Admin Trade Name Freq PRN Reason Stop Dose Admin Acetaminophen 650 mg 02/21/21 20:06 Acetaminophen 325 Mg Tablet PO Q6H PRN Pain, Mild (Pain Scale 1-3) Docusate Sodium 100 mg 02/21/21 20:06 Docusate Sodium 100 Mg Capsule PO DAILY PRN Constipation Enoxaparin Sodium 40 mg 02/21/21 20:06 Enoxaparin Sodium 40 Mg/0.4 Ml Syringe SUBCUT Q24H [facility] Hydroxyzine HCl 25 mg 02/21/21 21:00 Hydroxyzine Hcl 25 Mg Tablet PO QID [facility] Ceftriaxone Sodium 1 gm/ 50 mls @ 100 mls/hr 02/21/21 20:06 Sodium Chloride IV Q24H [facility] Insulin Human Lispro 0 unit 02/21/21 21:00 Insulin Lispro 100 Unit/Ml 3 [facility] Protocol Lamotrigine 150 mg 02/22/21 09:00 Lamotrigine 25 Mg Tablet PO DAILY [facility] Ondansetron HCl 4 mg 02/21/21 20:06 Ondansetron Hcl 4 Mg/2 Ml Vial IVPUSH Q8H PRN Nausea and Vomiting Oxycodone HCl 5 mg 02/21/21 20:06 Oxycodone Hcl Immed Release 5 Mg Tablet PO Q6H PRN Pain, Severe (Pain Scale 7-10) Paroxetine HCl 20 mg 02/22/21 09:00 Paroxetine Hcl 20 Mg Tablet PO DAILY [facility] Sodium Chloride 3 ml 02/22/21 00:00 0.9 % Sodium Chloride Flush 3 [facility] Medications Medication Instructions Recorded Confirmed Last Taken Type blood sugar diagnostic [Contour 02/21/21 02/21/21 Unknown History Next Test Strips] hydroxyzine HCl 1 tab PO QID 02/21/21 02/21/21 Unknown History insulin aspart U-100 [Novolog See Protocol SUBCUT TIDAC 02/21/21 02/21/21 Unknown History U-100 Insulin aspart] lamotrigine 1 tab PO DAILY 02/21/21 02/21/21 Unknown History paroxetine HCl 20 mg PO DAILY 02/21/21 02/21/21 Unknown History Physical Exam Vital Signs and Narrative: Vital Signs: Last Vital Signs Temp 99.6 F 02/21/21 16:27 Pulse 82 02/21/21 18:00 Resp 18 02/21/21 18:00 BP 112/80 02/21/21 18:00 Pulse Ox 100 02/21/21 18:00 Body Mass Index 37.8 Const: General: cooperative and no acute distress Orientation/consciousness: patient oriented x3 Eyes: General: appearance normal, both eyes and all related structures Resp: Effort & Inspection: normal respiratory effort and able to speak in complete sentences Cardio: Rate: regular rate Rhythm: regular rhythm GI: Palpation (GI): Soft to palpation Auscultation: normal bowel sounds Skin: General skin exam: no rashes or lesions noted Neuro: General: patient oriented x3 Cognition (Neuro): normal cognition Extrem: Other: Left lower extremity erythema, tenderness, warmth, and some swelling Results Labs CBC and Chem 7: 02/22/21 04:50 02/21/21 18:39 Labs: Laboratory Results - last 24 hr 02/21/21 02/21/21 02/21/21 18:38 18:38 18:39 MCV 88.4 MCH 29.1 MCHC 32.9 RDW 12.5 Plt Count 251 MPV 9.6 Immature Gran % (Auto) 0.5 H Neut % (Auto) 76.1 H Lymph % (Auto) 11.8 L [place] % (Auto) 10.0 Eos % (Auto) 1.0 Baso % (Auto) 0.6 Lymph # (Auto) 1.6 [place] # (Auto) 1.4 H Eos # (Auto) 0.1 Baso # (Auto) 0.1 Abs Immat Gran (auto) 0.07 H Absolute Neuts (auto) 10.5 H Absolute Nucleated RBC 0.000 Nucleated RBC % (auto) 0.0 ESR Hold Blue Top Anion Gap Estim Creat Clear Calc Estimated GFR Random Glucose Lactic Acid 0.8 Calcium Magnesium 2.2 Total Bilirubin Direct Bilirubin AST ALT Alkaline Phosphatase C-Reactive Protein Total Protein Albumin COVID-19 ([facility]) COVID-19 Clin Com 02/21/21 02/21/21 02/21/21 18:39 18:39 18:39 MCV MCH MCHC RDW Plt Count MPV Immature Gran % (Auto) Neut % (Auto) Lymph % (Auto) [place] % (Auto) Eos % (Auto) Baso % (Auto) Lymph # (Auto) [place] # (Auto) Eos # (Auto) Baso # (Auto) Abs Immat Gran (auto) Absolute Neuts (auto) Absolute Nucleated RBC Nucleated RBC % (auto) ESR 16 Hold Blue Top SEE NOTE Anion Gap 13 Estim Creat Clear Calc 73.7 Estimated GFR 53 Random Glucose 218 H D Lactic Acid Calcium 8.7 Magnesium Total Bilirubin 0.5 Direct Bilirubin 0.2 AST 18 D ALT 27 Alkaline Phosphatase 73 C-Reactive Protein 12.94 H Total Protein 6.2 L Albumin 3.9 COVID-19 ([facility]) COVID-19 Clin Com 02/21/21 18:39 MCV MCH MCHC RDW Plt Count MPV Immature Gran % (Auto) Neut % (Auto) Lymph % (Auto) [place] % (Auto) Eos % (Auto) Baso % (Auto) Lymph # (Auto) [place] # (Auto) Eos # (Auto) Baso # (Auto) Abs Immat Gran (auto) Absolute Neuts (auto) Absolute Nucleated RBC Nucleated RBC % (auto) ESR Hold Blue Top Anion Gap Estim Creat Clear Calc Estimated GFR Random Glucose Lactic Acid Calcium Magnesium Total Bilirubin Direct Bilirubin AST ALT Alkaline Phosphatase C-Reactive Protein Total Protein Albumin COVID-19 ([facility]) Negative COVID-19 Clin Com See Note Assessment and Plan (1) Cellulitis: Qualifiers: Laterality: left Site of cellulitis: extremity Site of cellulitis of extremity: lower extremity Qualified Code(s): L03.116 - Cellulitis of left lower limb Status: Acute This is a 45-year-old female with past medical history of of compartment syndrome presents the hospital leg pain, redness, and swelling # left lower extremity cellulitis - no evidence of compartment syndrome given her history - presented earlier in the day to the ED with sepsis like picture including tachycardia, leukocytosis, and fever - at this time will start on IV ceftriaxone - follow cultures # diabetes - will start on low-dose sliding scale insulin - diabetic diet # anxiety and depression - continue paroxetine and hydroxyzine DVT prophylaxis: Lovenox
[2021-02-21] MEDS: hydrOXYzine HCL 25 MG TABLET PO (21:48)
[2021-02-21] MEDS: cefTRIAXone sodium 1 GM in 0.9 % Sodium Chloride 50 ML IV (21:50)
[2021-02-21] MEDS: Enoxaparin Sodium 40 MG/0.4 ML SYRINGE SUBCUT (21:51)
[2021-02-21] MEDS: 0.9 % Sodium Chloride Flush 3 ML SYRINGE IVFLUSH (21:59)
[2021-02-21 23:59] VITALS: BP 149/78; PULSE 78; RESP 20; TEMP 36.7; O2SAT 96
[2021-02-22 01:05] LABS: Glucose, Whole Blood 220 mg/dL (60-115)
[2021-02-22 04:00] VITALS: BP 130/69; PULSE 69; RESP 20; TEMP 36.4; O2SAT 96
[2021-02-22 05:33] LABS: MANUAL DIFF FLAG NO
[2021-02-22 05:39] LABS: Basophils Absolute Auto 0.1 X10*3/uL (0.0-0.2); Basophils Percent Auto 0.8 % (0-2); Eosinophils Absolute Auto 0.3 X10*3/uL (0.0-0.4); Eosinophils Percent Auto 2.4 % (0-4); Hematocrit 40.3 % (37-47); Imm Gran Pct Auto 0.9 % (0.0-0.4); Lymphocytes Percent Auto 19.3 % (20-40); Mean Corpuscular HGB Conc 32.3 g/dl (31.0-35.0); Mean Corpuscular Hemoglobin 28.5 pg (27.0-33.0); Mean Corpuscular Volume 88.4 fL (80-98); Mean Platelet Volume 9.8 fL (9.4-12.3); Monocytes Absolute Auto 1.4 X10*3/uL (0.1-1.2); Monocytes Percent Auto 13.5 % (2-11); Neutrophils Absolute Auto 6.7 X10*3/uL (2.0-8.3); Neutrophils Percent Auto 63.1 % (45-73); Platelet Count 257 X10*3/uL (160-400); Red Blood Count 4.56 X10*6/uL (4.20-5.50); Red Cell Distribution Width 12.3 % (11.0-16.0); White Blood Count 10.6 X10*3/uL (4.8-10.8)
[2021-02-22 06:05] LABS: Anion Gap 13 (12-20); Blood Urea Nitrogen 12 mg/dL (9-16); Calcium 8.4 mg/dL (8.4-10.2); Carbon Dioxide 24 mmol/L (22-29); Chloride 104 mmol/L (96-108); Estimated Glomerular Filt Rate > 60; Glucose Random 117 mg/dL (60-115); Potassium 3.9 mmol/L (3.3-5.1); Sodium 137 mmol/L (135-145)
[2021-02-22 07:43] LABS: Glucose, Whole Blood 120 mg/dL (60-115)
[2021-02-22 08:00] VITALS: BP 138/67; PULSE 67; RESP 20; TEMP 36.5; O2SAT 96
[2021-02-22] MEDS: PARoxetine HCL 20 MG TABLET PO (09:20)
[2021-02-22] MEDS: hydrOXYzine HCL 25 MG TABLET PO ×4 (09:20→21:03)
[2021-02-22] MEDS: Piperacillin Sodium/Tazobactam 3.375 GM in 0.9 % Sodium Chloride 50 ML IV ×3 (09:20→21:03)
[2021-02-22] MEDS: 0.9 % Sodium Chloride Flush 3 ML SYRINGE IVFLUSH ×3 (09:20→21:13)
[2021-02-22] MEDS: lamoTRIgine 25 MG TABLET 150 MG PO (09:21)
[2021-02-22] MEDS: vancomycin HCL 1,250 MG in 0.9 % Sodium Chloride 250 ML 166.67 MG IV ×2 (10:11→21:29)
[2021-02-22 11:32] LABS: Glucose, Whole Blood 84 mg/dL (60-115)
[2021-02-22] MEDS: Subcutaneous Insulin Pump 1 EACH SUBCUT ×3 (11:52→21:15)
[2021-02-22 12:00] VITALS: BP 153/70; PULSE 74; RESP 20; TEMP 36.5; O2SAT 95
--- NOTE | 2021-02-22 15:26 | HO.PM.IMPN ---
Subjective Subjective Date of Service: 02/22/21 Interval History: c/o redness/pain LLE no fever since T 100.7 yesterday morning at 02:30 no N/V Physical Exam Vital Signs: Vital Signs: Last Vital Signs Temp 97.7 F 02/22/21 12:00 Pulse 74 02/22/21 12:00 Resp 20 02/22/21 12:00 BP 153/70 H 02/22/21 12:00 Pulse Ox 95 02/22/21 12:00 Body Mass Index 37.8 Gen: in no acute distress HEENT: sclera anicteric, moist mucus membranes Neck: supple Lungs: clear to auscultation bilaterally Heart: regular rate and rhythm, no murmurs Abd: soft, non-tender, non-distended Ext: no edema Skin: LLE erythema without purulence or drainage Neuro: alert and oriented x3, no focal findings Psych: appropriate affect Objective Data Current Medications Generic Name Dose Route Start Last Admin Trade Name Freq PRN Reason Stop Dose Admin Acetaminophen 650 mg 02/21/21 20:06 Acetaminophen 325 Mg Tablet PO Q6H PRN Pain, Mild (Pain Scale 1-3) Docusate Sodium 100 mg 02/21/21 20:06 Docusate Sodium 100 Mg Capsule PO DAILY PRN Constipation Enoxaparin Sodium 40 mg 02/21/21 20:06 02/21/21 21:51 Enoxaparin Sodium 40 Mg/0.4 Ml Syringe SUBCUT 40 mg Q24H [facility] Administration Hydroxyzine HCl 25 mg 02/21/21 21:00 02/22/21 12:55 Hydroxyzine Hcl 25 Mg Tablet PO 25 mg QID [facility]INN Administration Piperacillin Sod/Tazobactam 50 mls @ 100 mls/hr 02/22/21 08:45 02/22/21 15:18 Sod 3.375 gm/ Sodium Chloride IV 100 mls/hr Q6H [facility] Administration Vancomycin HCl 1,250 mg/ 250 mls @ 166.667 mls/hr 02/22/21 09:00 02/22/21 12:06 Sodium Chloride IV Infused Q12H [facility] Infusion Insulin Pump 1 each 02/22/21 11:30 02/22/21 11:52 Subcutaneous Insulin Pump SUBCUT 1 each QIDACHS ERINN Administration Protocol Lamotrigine 150 mg 02/22/21 09:00 02/22/21 09:21 Lamotrigine 25 Mg Tablet PO 150 mg DAILY [facility] Administration Ondansetron HCl 4 mg 02/21/21 20:06 Ondansetron Hcl 4 Mg/2 Ml Vial IVPUSH Q8H PRN Nausea and Vomiting Oxycodone HCl 5 mg 02/21/21 20:06 Oxycodone Hcl Immed Release 5 Mg Tablet PO Q6H PRN Pain, Severe (Pain Scale 7-10) Paroxetine HCl 20 mg 02/22/21 09:00 02/22/21 09:20 Paroxetine Hcl 20 Mg Tablet PO 20 mg DAILY [facility] Administration Pharmacy Consult 1 each 02/22/21 08:38 Consult Rx Vancomycin Dosing MISCELLANE DAILY PRN Consult order Sodium Chloride 3 ml 02/22/21 00:00 02/22/21 15:21 0.9 % Sodium Chloride Flush 3 Ml Syringe IVFLUSH 3 ml [facility]SHIFT [facility] Administration Labs CBC & Chem 7: 02/22/21 04:50 02/22/21 04:50 Labs: Laboratory Results - last 24 hr 02/21/21 02/21/21 02/21/21 18:38 18:38 18:39 WBC 13.9 H RBC 4.50 Hgb 13.1 Hct 39.8 MCV 88.4 MCH 29.1 MCHC 32.9 RDW 12.5 Plt Count 251 MPV 9.6 Immature Gran % (Auto) 0.5 H Neut % (Auto) 76.1 H Lymph % (Auto) 11.8 L [place] % (Auto) 10.0 Eos % (Auto) 1.0 Baso % (Auto) 0.6 Lymph # (Auto) 1.6 [place] # (Auto) 1.4 H Eos # (Auto) 0.1 Baso # (Auto) 0.1 Abs Immat Gran (auto) 0.07 H Absolute Neuts (auto) 10.5 H Absolute Nucleated RBC 0.000 Nucleated RBC % (auto) 0.0 ESR Hold Blue Top Sodium Potassium Chloride Carbon Dioxide Anion Gap BUN Creatinine Estim Creat Clear Calc Estimated GFR POC Glucose Random Glucose Lactic Acid 0.8 Calcium Magnesium 2.2 Total Bilirubin Direct Bilirubin AST ALT Alkaline Phosphatase C-Reactive Protein Total Protein Albumin COVID-19 ([facility]) COVID-19 Clin Com 02/21/21 02/21/21 02/21/21 18:39 18:39 18:39 WBC RBC Hgb Hct MCV MCH MCHC RDW Plt Count MPV Immature Gran % (Auto) Neut % (Auto) Lymph % (Auto) [place] % (Auto) Eos % (Auto) Baso % (Auto) Lymph # (Auto) [place] # (Auto) Eos # (Auto) Baso # (Auto) Abs Immat Gran (auto) Absolute Neuts (auto) Absolute Nucleated RBC Nucleated RBC % (auto) ESR 16 Hold Blue Top SEE NOTE Sodium 135 Potassium 4.0 Chloride 102 Carbon Dioxide 24 Anion Gap 13 BUN 15 Creatinine 1.13 Estim Creat Clear Calc 73.7 Estimated GFR 53 POC Glucose Random Glucose 218 H D Lactic Acid Calcium 8.7 Magnesium Total Bilirubin 0.5 Direct Bilirubin 0.2 AST 18 D ALT 27 Alkaline Phosphatase 73 C-Reactive Protein 12.94 H Total Protein 6.2 L Albumin 3.9 COVID-19 ([facility]) COVID-[employer] 02/21/21 02/21/21 02/22/21 18:39 22:15 04:50 WBC 10.6 RBC 4.56 Hgb 13.0 Hct 40.3 MCV 88.4 MCH 28.5 MCHC 32.3 RDW 12.3 Plt Count 257 MPV 9.8 Immature Gran % (Auto) 0.9 H Neut % (Auto) 63.1 Lymph % (Auto) 19.3 L [place] % (Auto) 13.5 H Eos % (Auto) 2.4 Baso % (Auto) 0.8 Lymph # (Auto) 2.0 [place] # (Auto) 1.4 H Eos # (Auto) 0.3 Baso # (Auto) 0.1 Abs Immat Gran (auto) 0.10 H Absolute Neuts (auto) 6.7 Absolute Nucleated RBC 0.000 Nucleated RBC % (auto) 0.0 ESR Hold Blue Top Sodium Potassium Chloride Carbon Dioxide Anion Gap BUN Creatinine Estim Creat Clear Calc Estimated GFR POC Glucose 220 H Random Glucose Lactic Acid Calcium Magnesium Total Bilirubin Direct Bilirubin AST ALT Alkaline Phosphatase C-Reactive Protein Total Protein Albumin COVID-19 ([facility]) Negative COVID-[employer] See Note 02/22/21 02/22/21 02/22/21 04:50 07:37 11:27 WBC RBC Hgb Hct MCV MCH MCHC RDW Plt Count MPV Immature Gran % (Auto) Neut % (Auto) Lymph % (Auto) [place] % (Auto) Eos % (Auto) Baso % (Auto) Lymph # (Auto) [place] # (Auto) Eos # (Auto) Baso # (Auto) Abs Immat Gran (auto) Absolute Neuts (auto) Absolute Nucleated RBC Nucleated RBC % (auto) ESR Hold Blue Top Sodium 137 Potassium 3.9 Chloride 104 Carbon Dioxide 24 Anion Gap 13 BUN 12 Creatinine 0.80 Estim Creat Clear Calc 104.0 Estimated GFR > 60 POC Glucose 120 H 84 Random Glucose 117 H D Lactic Acid Calcium 8.4 Magnesium Total Bilirubin Direct Bilirubin AST ALT Alkaline Phosphatase C-Reactive Protein Total Protein Albumin COVID-19 ([facility]) COVID-19 Clin Com Assessment and Plan (1) Cellulitis: Status: Acute (2) Diabetes: Status: Acute Assessment and Plan: hospital d#2 45yo F with DM1 on insulin pump, prior compartment syndrome related to martial arts injury presenting with LLE pain/redness/swelling # LLE cellulitis - change IV ceftriaxone to vanco + pip/mateo - follow BCx, monitor leg clinically; leukocytosis resolved # DM1 - insulin pump # mood disorder - continue paroxetine + hydroxyzine + lamotrigine # tobacco abuse - craving smoking, declines NRT; counseled # VTE ppx - LMWH
[2021-02-22 16:00] VITALS: BP 117/57; PULSE 75; RESP 20; TEMP 36.5; O2SAT 96
--- NOTE | 2021-02-22 16:13 | MHC.CM.PN ---
EMEKA AND NURSE DELANEY MET WITH PT TOGETHER. 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 SHE LIVES UPSTAIRS WITH HER CHILDREN, HER MOTHER LIVES DOWNSTAIRS AND HER SISTER LIVES NEXT DOOR. PT REPORTS SHE HAS PLENTY OF SUPPORT IF SHE NEEDS HELP AT DC. PT REPORTS SHE HAS A NEBULIZER AND ALTHOUGH SHE DOES NOT REQUIRE ANY OTHER DME, THEY DO HAVE MOBILITY DEVICES IN THE HOME FROM HER MOTHER. PT CONFIRMS HER PCP IS AR RUBIN AND SAYS SHE HAS A HCP COMPLETED NAMING HER MOTHER THE AGENT. CURRENT DC PLAN IS HOME WITH NO SERVICES PTS FAMILY WILL TRANSPORT
[2021-02-22 16:29] LABS: Glucose, Whole Blood 220 mg/dL (60-115)
[2021-02-22] MEDS: Enoxaparin Sodium 40 MG/0.4 ML SYRINGE SUBCUT (19:19)
[2021-02-22 20:00] VITALS: BP 140/65; PULSE 72; RESP 20; TEMP 36.3; O2SAT 95
[2021-02-22 20:41] LABS: Glucose, Whole Blood 182 mg/dL (60-115)
[2021-02-23] VITALS: BP 142/70; PULSE 78; RESP 20; TEMP 36.3; O2SAT 97
[2021-02-23] MEDS: Piperacillin Sodium/Tazobactam 3.375 GM in 0.9 % Sodium Chloride 50 ML IV ×2 (03:01→08:12)
[2021-02-23 03:44] VITALS: RESP 20
[2021-02-23 07:34] VITALS: BP 139/64; PULSE 67; RESP 19; TEMP 36.9; O2SAT 95
[2021-02-23 07:38] LABS: Glucose, Whole Blood 175 mg/dL (60-115)
[2021-02-23 08:02] LABS: MANUAL DIFF FLAG NO
[2021-02-23 08:08] LABS: Basophils Absolute Auto 0.1 X10*3/uL (0.0-0.2); Basophils Percent Auto 0.8 % (0-2); Eosinophils Absolute Auto 0.4 X10*3/uL (0.0-0.4); Eosinophils Percent Auto 4.2 % (0-4); Hematocrit 39.4 % (37-47); Imm Gran Abs Auto 0.07 X10*3/uL (0.00-0.03); Imm Gran Pct Auto 0.8 % (0.0-0.4); Lymphocytes Absolute Auto 1.7 X10*3/uL (1.2-4.9); Lymphocytes Percent Auto 18.8 % (20-40); Mean Corpuscular Hemoglobin 28.9 pg (27.0-33.0); Mean Corpuscular Volume 87.6 fL (80-98); Mean Platelet Volume 9.7 fL (9.4-12.3); Monocytes Absolute Auto 1.1 X10*3/uL (0.1-1.2); Monocytes Percent Auto 12.4 % (2-11); Neutrophils Absolute Auto 5.6 X10*3/uL (2.0-8.3); Platelet Count 255 X10*3/uL (160-400); Red Cell Distribution Width 12.3 % (11.0-16.0); White Blood Count 8.9 X10*3/uL (4.8-10.8)
[2021-02-23] MEDS: hydrOXYzine HCL 25 MG TABLET PO (08:11)
[2021-02-23] MEDS: lamoTRIgine 25 MG TABLET 150 MG PO (08:11)
[2021-02-23] MEDS: PARoxetine HCL 20 MG TABLET PO (08:11)
[2021-02-23] MEDS: 0.9 % Sodium Chloride Flush 3 ML SYRINGE IVFLUSH (08:12)
[2021-02-23] MEDS: Subcutaneous Insulin Pump 1 EACH SUBCUT (08:12)
[2021-02-23 08:29] LABS: Anion Gap 11 (12-20); Blood Urea Nitrogen 12 mg/dL (9-16); C Reactive Protein 6.64 mg/dL (< or = 0.50); Calcium 8.8 mg/dL (8.4-10.2); Carbon Dioxide 26 mmol/L (22-29); Chloride 104 mmol/L (96-108); Creatinine Clr Calc Pharmacy 101.6; Estimated Glomerular Filt Rate > 60; Glucose Random 185 mg/dL (60-115); Potassium 4.3 mmol/L (3.3-5.1); Sodium 137 mmol/L (135-145)
[2021-02-23 08:32] LABS: Vancomycin Trough 10.3 mcg/mL (10.0-20.0)
[2021-02-23] MEDS: vancomycin HCL 1,250 MG in 0.9 % Sodium Chloride 250 ML 166.67 MG IV (09:02)
--- NOTE | 2021-02-23 10:43 | P.CDIC_ITS ---
CDI Concurrent Query Service Date: 02/23/21 Documentation Clarification: Please clarify if you are treating a proba ble/suspected/likely or confirmed: Sepsis (txt, rule out) due to Cellulitis associated with Diabetes Mellitus (POA, resolved) Cellulitis associated with Diabetes Mellitus Please specify if known or undertermined Provider Response: Sepsis PLEASE DO NOT DELETE/MODIFY EXISTING CONTENT Additional information is needed in order to code to the highest accuracy and appropriate Severity of Illness (SOI). Please clarify the information noted below in your progress notes and discharge summary. Risk Factors/Clinical Indicators/Treatments Cellulitis - lower leg extremity w erythema and swelling/Diabetes Mellitus. H&P: sepsis like picture including Tachycardia, leukocytosis and fever. HR 103 116 Temp 100.7 WBC 13.9 random glucose 218 H D IV Vancomycin, Piperacillin, IV fluids CDS: Munira Houston CCS, CDIS Contact Number: [phone] Please Review the information above and exercise your independent professional judgment in responding to the query. If you concur, pleas document in the PROGRESS NOTES and DISCHARGE SUMMARY. If you do not agree with the query, please document in the query above. THIS QUERY IS PART OF THE PERMANENT MEDICAL RECORD
[2021-02-23 11:25] LABS: Glucose, Whole Blood 118 mg/dL (60-115)
--- NOTE | 2021-02-23 11:27 | P.DS_ITS ---
DS: Providers Provider Date of Service: 02/23/21 Date of admission: 02/21/21 19:57 Primary care physician: Mark Morfin MD DS: Diagnosis Discharge Diagnosis (1) Cellulitis: Status: Acute (2) Diabetes: Status: Acute (3) Sepsis: Status: Acute (4) Tobacco abuse: Status: Acute DS: Medications Discharge Medications Home Medications: Home Medications Medication Instructions Recorded Confirmed Contour Next Test Strips 02/21/21 02/21/21 hydroxyzine HCl 1 tab PO QID 02/21/21 02/21/21 insulin aspart U-100 [Novolog See Protocol SUBCUT TIDAC 02/21/21 02/21/21 U-100 Insulin aspart] lamotrigine 1 tab PO DAILY 02/21/21 02/21/21 paroxetine HCl 20 mg PO DAILY 02/21/21 02/21/21 Previous Rx's Medication Instructions Recorded doxycycline hyclate 100 mg PO BID 10 Days #20 cap 02/21/21 amoxicillin-pot clavulanate 1 tab PO BID #20 tab 02/23/21 DS: Summary Hospital Course Hospital Course: From the history and physical by the admitting hospitalist, Humaira Serna MD, 02/21/21: This is a 45-year-old female with past medical history of compartment syndrome, diabetes, presents to the hospital with complaints of left lower extremity erythema, pain and swelling. Patient reports that the symptoms started about 2 days ago after a bowling tournament, she is having progressive redness, worsening pain, and some swelling. She denies any fever but has chills, no abdominal pain nausea or diarrhea, no urinary symptoms. No chest pain or palpitations. No shortness of breath or cough. No headache change in vision. Patient did presents to the hospital on 02/21 but had to leave AMA to take care of her kids and returned few hours later. At the initial presentation she had a temp of a 100.7?, tachycardia, normal respiratory rate and stable blood pressure For WBC count of 13.9, C-reactive protein of 12.9, COVID-19 negative, otherwise unremarkable The patient was admitted to the medical/surgical floor for sepsis due to non- purulent cellulitis. She was treated with broad-spectrum IV antibiotics (vancomycin + piperacillin/tazobactam) with improvement in the erythema and induration, and resolution of the leukocytosis and fever. Insulin pump was continued. Smoking cessation was cousneled, but the patient declined NRT. She was discharged home with 10 days of doxycycline and amoxicillin/clavulanate and instructed to follow up with her primary care doctor as scheduled on 02/24/21. Time Spent with Patient Time attestation: Total time spent providing and/or coordinating discharge services: 35 Discharge coordination time: Greater than 30 minutes Physical Exam Vital Signs: Vital Signs: Last Vital Signs Temp 98.4 F 02/23/21 07:34 Pulse 67 02/23/21 07:34 Resp 19 02/23/21 07:34 BP 139/64 02/23/21 07:34 Pulse Ox 95 02/23/21 07:34 Body Mass Index 37.8 Gen: in no acute distress HEENT: sclera anicteric, moist mucus membranes Neck: supple Lungs: clear to auscultation bilaterally Heart: regular rate and rhythm, no murmurs Abd: soft, non-tender, non-distended Ext: no edema Skin: LLE erythema resolving, without any purulence or drainage Neuro: alert and oriented x3, no focal findings Psych: appropriate affect DS: Data Data Completed and Pending Completed studies during hospitalization [Text1]: Laboratory Results WBC 8.9 X10*3/uL (4.8-10.8) 02/23/21 07:57 RBC 4.50 X10*6/uL (4.20-5.50) 02/23/21 07:57 Hgb 13.0 g/dl (12.0-16.0) 02/23/21 07:57 Hct 39.4 % (37-47) 02/23/21 07:57 MCV 87.6 fL (80-98) 02/23/21 07:57 MCH 28.9 pg (27.0-33.0) 02/23/21 07:57 MCHC 33.0 g/dl (31.0-35.0) 02/23/21 07:57 RDW 12.3 % (11.0-16.0) 02/23/21 07:57 Plt Count 255 X10*3/uL (160-400) 02/23/21 07:57 MPV 9.7 fL (9.4-12.3) 02/23/21 07:57 Immature Gran % (Auto) 0.8 % (0.0-0.4) H 02/23/21 07:57 Neut % (Auto) 63.0 % (45-73) 02/23/21 07:57 Lymph % (Auto) 18.8 % (20-40) L 02/23/21 07:57 [place] % (Auto) 12.4 % (2-11) H 02/23/21 07:57 Eos % (Auto) 4.2 % (0-4) H 02/23/21 07:57 Baso % (Auto) 0.8 % (0-2) 02/23/21 07:57 Lymph # (Auto) 1.7 X10*3/uL (1.2-4.9) 02/23/21 07:57 [place] # (Auto) 1.1 X10*3/uL (0.1-1.2) 02/23/21 07:57 Eos # (Auto) 0.4 X10*3/uL (0.0-0.4) 02/23/21 07:57 Baso # (Auto) 0.1 X10*3/uL (0.0-0.2) 02/23/21 07:57 Abs Immat Gran (auto) 0.07 X10*3/uL (0.00-0.03) H 02/23/21 07:57 Absolute Neuts (auto) 5.6 X10*3/uL (2.0-8.3) 02/23/21 07:57 Absolute Nucleated RBC 0.000 X10*3/uL (0.0-0.012) 02/23/21 07:57 Nucleated RBC % (auto) 0.0 /100WBC (0.0-0.2) 02/23/21 07:57 ESR 16 MM/HR (0-20) 02/21/21 18:39 Hold Blue Top SEE NOTE 02/21/21 18:39 Sodium 137 mmol/L (135-145) 02/23/21 07:57 Potassium 4.3 mmol/L (3.3-5.1) 02/23/21 07:57 Chloride 104 mmol/L (96-108) 02/23/21 07:57 Carbon Dioxide 26 mmol/L (22-29) 02/23/21 07:57 Anion Gap 11 (12-20) L 02/23/21 07:57 BUN 12 mg/dL (9-16) 02/23/21 07:57 Creatinine 0.82 mg/dL (0.5-1.4) 02/23/21 07:57 Estim Creat Clear Calc 101.6 02/23/21 07:57 Estimated GFR > 60 02/23/21 07:57 POC Glucose 118 mg/dL (60-115) H 02/23/21 11:20 Random Glucose 185 mg/dL (60-115) H D 02/23/21 07:57 Lactic Acid 0.8 mmol/L (0.5-2.0) 02/21/21 18:38 Calcium 8.8 mg/dL (8.4-10.2) 02/23/21 07:57 Magnesium 2.2 mg/dL (1.6-2.6) 02/21/21 18:38 Total Bilirubin 0.5 mg/dL (0.0-1.0) 02/21/21 18:39 Direct Bilirubin 0.2 mg/dL (0.0-0.5) 02/21/21 18:39 AST 18 U/L (5-31) D 02/21/21 18:39 ALT 27 U/L (0-31) 02/21/21 18:39 Alkaline Phosphatase 73 U/L (39-117) 02/21/21 18:39 C-Reactive Protein 6.64 mg/dL (< or = 0.50) H 02/23/21 07:57 Total Protein 6.2 g/dL (6.5-8.0) L 02/21/21 18:39 Albumin 3.9 g/dL (3.5-5.0) 02/21/21 18:39 Vancomycin Trough 10.3 mcg/mL (10.0-20.0) 02/23/21 07:57 COVID-19 (RAMY) Negative (Negative) 02/21/21 18:39 COVID-19 Clin Com See Note 02/21/21 18:39 Discharge Plan Discharge Anticipated Discharge Date/Time: 02/23/21 11:18 Patient Disposition: Home, Self-Care Discharge Diagnosis: cellulitis of the left leg Referrals: Mark Morfin MD [Primary Care Provider] - 1 Week Discharge Medications: New amoxicillin-pot clavulanate 875-125 mg tablet 1 tab PO BID Qty: 20 RF: 0 Continued lamotrigine 150 mg tablet 1 tab PO DAILY RF: 0 (DME) Contour Next Test Strips Strip 1 strip MISCELLANEOUS 4-5XD RF: 0 insulin aspart U-100 [Novolog U-100 Insulin aspart] 100 unit/mL solution See Protocol sliding scale dose subcut TIDAC RF: 0 paroxetine HCl 20 mg tablet 20 mg PO DAILY RF: 0 hydroxyzine HCl 25 mg tablet 1 tab PO QID RF: 0 doxycycline hyclate 100 mg capsule 100 mg PO BID 10 Days Qty: 20 RF: 0 Discontinued cephalexin 500 mg capsule 500 mg PO QID 10 Days Qty: 40 RF: 0 Discharge Orders: Discharge Order (Routine); Ordered 02/23/21 Ordered By: [facility] Diet: diabetic diet Activity on Discharge: As tolerated Stand Alone Forms: Patient Portal Discharge page, Work/School Release Care Plan Goals: resolution of cellulitis smoking cessation Health Concerns: cellulitis tobacco abuse Plan of Treatment: take previously prescribed doxycycline 100 mg twice daily for 10 days also take amoxicillin/clavulanate 875/125 mg twice daily for 10 days. do not take the cephalexin previously prescribed. follow up with your primary care doctor as scheduled 02/24/21. return to hospital for fever or worsening redness/pain/drainage from leg. recommend smoking cessation Assessment: as above Patient Instructions: Cellulitis (DC), Cigarette Smoking and Your Health (GEN)
[2021-02-23 11:58] VITALS: BP 142/64; PULSE 78; RESP 18; TEMP 36.4; O2SAT 97
--- NOTE | 2021-02-23 12:06 | MHC.CM.PN ---
[facility] management note electronic medical record reviewed along with amanda discussed with hospitalist monty staff nurse. 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
== END 2021-02-23 12:10 | disposition home or self-care (01) | DRG 872 ==
LOC: HO.ED 19:50 → HO.EDOVER 20:40 → HO.S3 20:45
PROVIDERS: Physician Assistant; Admitting Provider Internal Medicine; Emergency Provider Emergency Medicine; PCP Internal Medicine; Visit Provider Family Medicine
DX: A41.9 Sepsis, unspecified organism (principal); L03.116 Cellulitis of left lower limb; E10.9 Type 1 diabetes mellitus without complications; F17.210 Nicotine dependence, cigarettes, uncomplicated; Z96.41 Presence of insulin pump (external) (internal); Z20.822 Contact with and (suspected) exposure to COVID-19; Z79.899 Other long term (current) drug therapy
CPT/HCPCS: 36415; 73702; 80048; 80053; 80076; 80202; 81003; 82009; 82550; 82947; 83605; 83735; 85025; 85610; 85652; 86140; 87040; 87635; 93005; 96365; 96366; 96368; 99218; 99285; J0696; J1650; J2543; J3010; J3370; Q9967

== ENCOUNTER 2021-03-20 19:13 | Emergency (ER) | payer OTHER, SELFPAY ==
[2021-03-20 19:17] VITALS: BP 120/79; PULSE 97; RESP 16; TEMP 36.9; O2SAT 93; BMI 37.8
[2021-03-20 19:51] LABS: MANUAL DIFF FLAG NO
[2021-03-20 19:53] LABS: Basophils Absolute Auto 0.1 X10*3/uL (0.0-0.2); Basophils Percent Auto 1.1 % (0-2); Eosinophils Absolute Auto 0.4 X10*3/uL (0.0-0.4); Eosinophils Percent Auto 3.1 % (0-4); Hematocrit 40.8 % (37-47); Hemoglobin 13.7 g/dl (12.0-16.0); Imm Gran Abs Auto 0.11 X10*3/uL (0.00-0.03); Imm Gran Pct Auto 0.9 % (0.0-0.4); Lymphocytes Absolute Auto 2.3 X10*3/uL (1.2-4.9); Lymphocytes Percent Auto 19.5 % (20-40); Mean Corpuscular HGB Conc 33.6 g/dl (31.0-35.0); Mean Corpuscular Volume 86.3 fL (80-98); Mean Platelet Volume 10.5 fL (9.4-12.3); Monocytes Absolute Auto 1.2 X10*3/uL (0.1-1.2); Monocytes Percent Auto 10.4 % (2-11); Neutrophils Absolute Auto 7.7 X10*3/uL (2.0-8.3); Platelet Count 276 X10*3/uL (160-400); Red Blood Count 4.73 X10*6/uL (4.20-5.50); Red Cell Distribution Width 12.4 % (11.0-16.0); White Blood Count 11.8 X10*3/uL (4.8-10.8)
[2021-03-20 20:13] LABS: Anion Gap 16 (12-20); Blood Urea Nitrogen 11 mg/dL (9-16); Carbon Dioxide 23 mmol/L (22-29); Chloride 100 mmol/L (96-108); Estimated Glomerular Filt Rate 50; Glucose Random 572 mg/dL (60-115); Potassium 4.8 mmol/L (3.3-5.1); Sodium 134 mmol/L (135-145)
[2021-03-20 22:18] VITALS: BP 152/81; PULSE 84; RESP 17; O2SAT 96
[2021-03-20 22:23] LABS: Glucose, Whole Blood > 600 mg/dL (60-115)
--- NOTE | 2021-03-20 22:24 | PC.NURSE ---
Dr Avila aware of pt's >600 on POC glucometer, is aware that pt states my pump site 't working; it's giving me an error message and that must be why it's so high. Pt reports polyuria. Pt aaox4, RR even and unlabored. Pt tearful c/o of L ankle pain but is ambulatory with steady gait +CMS, no unilateral warmth noted. Pt without additional complaints/concerns.
--- NOTE | 2021-03-20 23:26 | ED_ITS ---
HPI - Extremity Problem General Chief complaint: Extremity Problem Stated complaint: Leg Infection Time Seen by Provider: 03/20/21 23:23 Source: patient Mode of arrival: ambulatory History of Present Illness HPI Narrative: 45-year-old female who presents with onset of left lower extremity pain with minimal swelling, patient has had several episodes previously and was treated with IV antibiotics and admission prior. Patient reports some chills but denies any redness or significant swelling at the onset of the pain. Related Data Home Medications Medication Instructions Recorded Confirmed Contour Next Test Strips 02/21/21 02/21/21 hydroxyzine HCl 1 tab PO QID 02/21/21 02/21/21 insulin aspart U-100 [Novolog See Protocol SUBCUT TIDAC 02/21/21 02/21/21 U-100 Insulin aspart] lamotrigine 1 tab PO DAILY 02/21/21 02/21/21 paroxetine HCl 20 mg PO DAILY 02/21/21 02/21/21 Previous Rx's Medication Instructions Recorded doxycycline hyclate 100 mg PO BID 10 Days #20 cap 02/21/21 amoxicillin-pot clavulanate 1 tab PO BID #20 tab 02/23/21 Allergies Allergy/AdvReac Type Severity Reaction Status Date / Time insulin lispro Allergy Rash Verified 03/20/21 19:21 [From Humalog U-100 Insulin] Review of Systems Review of Systems: Pertinent positives and negatives as stated in HPI 10 point review of systems is otherwise negative. [facility] Past Medical History Source: nursing notes reviewed Medical History Anxiety Compartment syndrome Diabetes Diabetes Hyperlipidemia Surgical History H/O: hysterectomy Social History Social History Household Members: Children Housing: Apartment Do you presently have visiting nurse or other home services: No Alcohol intake: current Alcohol intake frequency: other Cigarette Packs Per Day: 0.5 Cigarettes Per Day: 10.0 Advance Directives: No Advance Directives Information Provided: Yes Patient : No service: No Current occupational status: employed Physical Exam Vital Signs: Vital Signs: Last Vital Signs Temp 98.4 F 03/20/21 19:17 Pulse 75 03/21/21 02:00 Resp 18 03/21/21 02:00 BP 144/67 H 03/21/21 02:00 Pulse Ox 97 03/21/21 02:00 Body Mass Index 37.8 VITAL SIGNS: Reviewed. GENERAL: Well developed, well nourished, in no acute distress. HEAD: Normocephalic/atraumatic EYES: PERRLA, EOMI NOSE: Nares patent bilateral LUNGS: Normal breath sounds. No adventitious sounds or accessory muscle use. SpO2<96> CARDIOVASCULAR: Regular rate and rhythm without noted murmurs ABDOMEN: Soft, non-tender, non-distended with bowel sounds. LEFT LOWER EXTREMITY: No obvious deformity, some mild swelling that is nonpitting, palpable DP/PT, capillary refill less than 3 seconds, soft compar tments, full range of motion Course Course Course Narrative: 45-year-old female with history and clinical presentation consistent with recurrent issues with left lower extremity pain, swelling and li miguel a combination of poor venous return which as per patient is being further evaluated this week with vascular studies. All of her physicians are through the [facility] system. In addition, it is noted that patient is hyperglycemic without evidence of DKA or HHS. Review of all investigations negative for any acute findings in the leukocytosis that is noted likely reactive in nature. On re-evaluation patient has had significant improvement in her pain after compression with the Ad wrap. She is discharged in stable condition instructed to follow up with the surgeon who originally did the operation on her left lower extremity and to continue with her vascular studies this month. MDM - Extremity (Nontraumatic) Lab Data Result diagrams: 03/20/21 19:44 03/20/21 19:44 Labs: Lab Results 03/20/21 03/20/21 03/20/21 Range/Units 19:44 19:44 19:44 WBC 11.8 H (4.8-10.8) X10*3/uL RBC 4.73 (4.20-5.50) X10*6/uL Hgb 13.7 (12.0-16.0) g/dl Hct 40.8 (37-47) % MCV 86.3 (80-98) fL MCH 29.0 (27.0-33.0) pg MCHC 33.6 (31.0-35.0) g/dl RDW 12.4 (11.0-16.0) % Plt Count 276 (160-400) X10*3/uL MPV 10.5 (9.4-12.3) fL Immature Gran % (Auto) 0.9 H (0.0-0.4) % Neut % (Auto) 65.0 (45-73) % Lymph % (Auto) 19.5 L (20-40) % [place] % (Auto) 10.4 (2-11) % Eos % (Auto) 3.1 (0-4) % Baso % (Auto) 1.1 (0-2) % Lymph # (Auto) 2.3 (1.2-4.9) X10*3/uL [place] # (Auto) 1.2 (0.1-1.2) X10*3/uL Eos # (Auto) 0.4 (0.0-0.4) X10*3/uL Baso # (Auto) 0.1 (0.0-0.2) X10*3/uL Abs Immat Gran (auto) 0.11 H (0.00-0.03) X10*3/uL Absolute Neuts (auto) 7.7 (2.0-8.3) X10*3/uL Absolute Nucleated RBC 0.000 (0.0-0.012) X10*3/uL Nucleated RBC % (auto) 0.0 (0.0-0.2) /100WBC Sodium 134 L (135-145) mmol/L Potassium 4.8 (3.3-5.1) mmol/L Chloride 100 (96-108) mmol/L Carbon Dioxide 23 (22-29) mmol/L Anion Gap 16 (12-20) BUN 11 (9-16) mg/dL Creatinine 1.19 (0.5-1.4) mg/dL Estim Creat Clear Calc 70.0 Estimated GFR 50 POC Glucose (60-115) mg/dL Random Glucose 572 H* (60-115) mg/dL Lactic Acid 1.0 (0.5-2.0) mmol/L Calcium 9.0 (8.4-10.2) mg/dL Urine Color Urine Appearance Urine pH (5.0-8.0) Ur Specific [place] (1.005-1.025) Urine Protein (NEG-TRACE) MG/DL Urine Glucose (UA) (NEG) MG/DL Urine Ketones (NEG) MG/DL Urine Blood (NEG) Urine Nitrite (NEG) Ur Leukocyte Esterase (NEG) Urine RBC (0) /HPF Urine WBC Ur Squamous Epith Cells Urine Bacteria Urine Test (NEGATIVE) Acetone, Qual Negative (Negative) 03/20/21 03/21/21 03/21/21 Range/Units 22:16 00:06 00:06 WBC (4.8-10.8) X10*3/uL RBC (4.20-5.50) X10*6/uL Hgb (12.0-16.0) g/dl Hct (37-47) % MCV (80-98) fL MCH (27.0-33.0) pg MCHC (31.0-35.0) g/dl RDW (11.0-16.0) % Plt Count (160-400) X10*3/uL MPV (9.4-12.3) fL Immature Gran % (Auto) (0.0-0.4) % Neut % (Auto) (45-73) % Lymph % (Auto) (20-40) % [place] % (Auto) (2-11) % Eos % (Auto) (0-4) % Baso % (Auto) (0-2) % Lymph # (Auto) (1.2-4.9) X10*3/uL [place] # (Auto) (0.1-1.2) X10*3/uL Eos # (Auto) (0.0-0.4) X10*3/uL Baso # (Auto) (0.0-0.2) X10*3/uL Abs Immat Gran (auto) (0.00-0.03) X10*3/uL Absolute Neuts (auto) (2.0-8.3) X10*3/uL Absolute Nucleated RBC (0.0-0.012) X10*3/uL Nucleated RBC % (auto) (0.0-0.2) /100WBC Sodium (135-145) mmol/L Potassium (3.3-5.1) mmol/L Chloride (96-108) mmol/L Carbon Dioxide (22-29) mmol/L Anion Gap (12-20) BUN (9-16) mg/dL Creatinine (0.5-1.4) mg/dL Estim Creat Clear Calc Estimated GFR POC Glucose > 600 H* (60-115) mg/dL Random Glucose (60-115) mg/dL Lactic Acid (0.5-2.0) mmol/L Calcium (8.4-10.2) mg/dL Urine Color YELLOW Urine Appearance CLEAR Urine pH 6.5 (5.0-8.0) Ur Specific [place] <= 1.005 (1.005-1.025) Urine Protein NEG (NEG-TRACE) MG/DL Urine Glucose (UA) >=1000 H (NEG) MG/DL Urine Ketones NEG (NEG) MG/DL Urine Blood NEG (NEG) Urine Nitrite NEG (NEG) Ur Leukocyte Esterase NEG (NEG) Urine RBC (0) /HPF Urine WBC Not Reportable Ur Squamous Epith Cells Not Reportable Urine Bacteria Not Reportable Urine Test NEGATIVE (NEGATIVE) Acetone, Qual (Negative) 03/21/21 Range/Units 02:13 WBC (4.8-10.8) X10*3/uL RBC (4.20-5.50) X10*6/uL Hgb (12.0-16.0) g/dl Hct (37-47) % MCV (80-98) fL MCH (27.0-33.0) pg MCHC (31.0-35.0) g/dl RDW (11.0-16.0) % Plt Count (160-400) X10*3/uL MPV (9.4-12.3) fL Immature Gran % (Auto) (0.0-0.4) % Neut % (Auto) (45-73) % Lymph % (Auto) (20-40) % [place] % (Auto) (2-11) % Eos % (Auto) (0-4) % Baso % (Auto) (0-2) % Lymph # (Auto) (1.2-4.9) X10*3/uL [place] # (Auto) (0.1-1.2) X10*3/uL Eos # (Auto) (0.0-0.4) X10*3/uL Baso # (Auto) (0.0-0.2) X10*3/uL Abs Immat Gran (auto) (0.00-0.03) X10*3/uL Absolute Neuts (auto) (2.0-8.3) X10*3/uL Absolute Nucleated RBC (0.0-0.012) X10*3/uL Nucleated RBC % (auto) (0.0-0.2) /100WBC Sodium (135-145) mmol/L Potassium (3.3-5.1) mmol/L Chloride (96-108) mmol/L Carbon Dioxide (22-29) mmol/L Anion Gap (12-20) BUN (9-16) mg/dL Creatinine (0.5-1.4) mg/dL Estim Creat Clear Calc Estimated GFR POC Glucose 195 H (60-115) mg/dL Random Glucose (60-115) mg/dL Lactic Acid (0.5-2.0) mmol/L Calcium (8.4-10.2) mg/dL Urine Color Urine Appearance Urine pH (5.0-8.0) Ur Specific [place] (1.005-1.025) Urine Protein (NEG-TRACE) MG/DL Urine Glucose (UA) (NEG) MG/DL Urine Ketones (NEG) MG/DL Urine Blood (NEG) Urine Nitrite (NEG) Ur Leukocyte Esterase (NEG) Urine RBC (0) /HPF Urine WBC Ur Squamous Epith Cells Urine Bacteria Urine Test (NEGATIVE) Acetone, Qual (Negative) Discharge Plan Discharge Clinical Impression: Acute pain of left lower extremity Patient Disposition: Home, Self-Care Instructions: Leg Edema (ED), Leg Pain (ED) Additional Instructions: 1. Please use compression stockings, knee-high, at least 30 mmHg, for best results and reduction of pain. 2. The recommend using [id number] Tylenol/ibuprofen for additional pain relief. Return to the ER for any acute worsening of your symptoms. Prescriptions: No Action amoxicillin-pot clavulanate 875-125 mg tablet 1 tab PO BID Qty: 20 RF: 0 lamotrigine 150 mg tablet 1 tab PO DAILY RF: 0 (DME) Contour Next Test Strips Strip 1 strip MISCELLANEOUS 4-5XD RF: 0 insulin aspart U-100 [Novolog U-100 Insulin aspart] 100 unit/mL solution See Protocol sliding scale dose subcut TIDAC RF: 0 paroxetine HCl 20 mg tablet 20 mg PO DAILY RF: 0 hydroxyzine HCl 25 mg tablet 1 tab PO QID RF: 0 doxycycline hyclate 100 mg capsule 100 mg PO BID 10 Days Qty: 20 RF: 0 Referrals: Physician,Unknown [Primary Care Provider] - 2 days
[2021-03-20] MEDS: Ketorolac Tromethamine 15 MG/ML VIAL IVPUSH (23:50)
[2021-03-20] MEDS: 0.9 % Sodium Chloride 2,000 ML 999 ML IV (23:50)
[2021-03-20] MEDS: Acetaminophen 325 MG TABLET 975 MG PO (23:51)
[2021-03-20 23:59] LABS: Acetone, serum QL Negative (Negative)
[2021-03-21] VITALS: BP 148/58; PULSE 80; RESP 18; O2SAT 96
[2021-03-21 00:17] LABS: Glucose Urine UA >=1000 MG/DL (NEG); Leukocyte Esterase Urine NEG (NEG); Nitrite Urine NEG (NEG); PH 6.5 (5.0-8.0); Specific Gravity - Urine <= 1.005 (1.005-1.025); Urine Blood NEG (NEG); Urine Ketones NEG (NEG); Urine Protein NEG (NEG-TRACE)
[2021-03-21 00:30] LABS: UPreg QC Valid YES; Urine Pregnancy NEGATIVE (NEGATIVE)
[2021-03-21 00:40] LABS: Appearance Urine CLEAR; Color Urine YELLOW
[2021-03-21 02:00] VITALS: BP 144/67; PULSE 75; RESP 18; O2SAT 97
[2021-03-21 02:19] LABS: Glucose, Whole Blood 195 mg/dL (60-115)
== END 2021-03-21 03:32 | disposition home or self-care (01) ==
PROVIDERS: Emergency Provider Student in an Organized Health Care Education/Training Program
DX: M79.662 Pain in left lower leg (principal); E11.9 Type 2 diabetes mellitus without complications; E78.5 Hyperlipidemia, unspecified; F17.210 Nicotine dependence, cigarettes, uncomplicated; Z71.6 Tobacco abuse counseling; Z79.899 Other long term (current) drug therapy; Z79.4 Long term (current) use of insulin
CPT/HCPCS: 36415; 80048; 81001; 81025; 82009; 82947; 83605; 85025; 87040; 96365; 96375; 99284; J1885

== ENCOUNTER 2022-05-10 09:00 | Outpatient (RCR) | payer OTHER, SELFPAY | END 2022-08-05 13:51 | disposition home or self-care (01) | LOC: HO.OT 09:00 | PROVIDERS: PCP Internal Medicine; Visit Provider Student in an Organized Health Care Education/Training Program | DX: I89.0 Lymphedema, not elsewhere classified (principal) | CPT/HCPCS: 97110; 97140 ==

== ENCOUNTER 2023-12-11 08:38 | Outpatient (REF) | payer OTHER, SELFPAY ==
--- NOTE | ~2023-12-11 | US_ITS ---
EXAMINATION: US ABDOMEN COMPLETE CLINICAL INFORMATION: Right upper quadrant abdominal pain. COMPARISON: None available. TECHNIQUE: Real-time imaging of the abdominal viscera. Limited visualization due to bowel gas. FINDINGS: PANCREAS: Limited visualization of pancreatic tail and head. Imaged portion of pancreatic body is unremarkable. ABDOMINAL AORTA: Limited visualization. INFERIOR VENA CAVA: Visualized portions are normal. LIVER: Increased hepatic parenchymal heterogeneity and echogenicity could be associated with hepatocellular disease/hepatic steatosis and substantially limits visualization. Correlation with liver function tests and clinical exam recommended to determine further management. GALLBLADDER: No gallstones. Gallbladder wall thickness of 3 mm. COMMON BILE DUCT: Normal in caliber measuring 0.3 cm in diameter. RIGHT KIDNEY: No hydronephrosis. No renal calculi. Limited visualization. The kidney measures 12.2 cm in maximum dimension. LEFT KIDNEY: No hydronephrosis. No renal calculi. Limited visualization. The kidney measures 12.2 cm in maximum dimension. SPLEEN: Normal. The spleen measures 11.5 cm in maximum dimension. FREE FLUID: None. US/US abdomen complete IMPRESSION: Increased hepatic parenchymal heterogeneity and echogenicity could be associated with hepatocellular disease/hepatic steatosis and substantially limits visualization. Correlation with liver function tests and clinical exam recommended to determine further management.
== END 2023-12-11 08:39 | disposition home or self-care (01) ==
LOC: HO.US 08:38
PROVIDERS: PCP Internal Medicine; Visit Provider Nurse Practitioner Family
DX: R10.11 Right upper quadrant pain (principal)
CPT/HCPCS: 76700

== ENCOUNTER → 2023-12-14 08:19 | Outpatient (REF) | payer OTHER, SELFPAY ==
--- NOTE | 2023-12-14 08:30 | CA_ITS ---
Transthoracic Echocardiogram Patient (Last, First, Middle): Azra Roberto, Gender: Female Date of : 1975 Age: 48 Procedure Date: 12/14/2023 Procedure Type: Transthoracic Echocardiogram Location: OP Height: 162.56 cm Weight: 104.33 kg BSA: 2.08 m2 Heart Rate: bpm BP: 148 / 82 mmHg Meat Apprentice: TO Referring MD: Milady Kelsey II Symptoms: SYNCOPE Study Quality: Fair ECG Rhythm: Sinus Conclusions: - The left ventricular systolic function is normal. The calculated ejection fraction is 60% by biplane method. - No obvious valvular pathology seen on this study. Findings Left Ventricle Normal left ventricular cavity size. There is normal left ventricular wall thickness. The left ventricular systolic function is normal. The calculated ejection fraction is 60% by biplane method. There is no evidence of regional wall motion abnormalities. Diastolic function is normal for age. Right Ventricle Normal right ventricular cavity size and systolic function. Atria Both atria are normal in size. Aortic Valve There is a normal trileaflet aortic valve. There is no aortic valve stenosis. There is no aortic valve regurgitation. Mitral Valve The mitral valve appears normal. There is trace mitral valve regurgitation. There is no mitral valve stenosis. Pulmonic Valve The pulmonic valve is likely normal. Tricuspid Valve Normal tricuspid valve structure. There is trace tricuspid valve regurgitation. There is no evidence of pulmonary hypertension. Great Vessels The asc aorta is normal in size. Venous The inferior vena cava is normal in size and collapses greater than 50% with inspiration. Pericardium/Pleural There is no evidence of pericardial effusion. Prior Study Comparison No prior study available for comparison. Recommendations, Care & Conclusions No obvious valvular pathology seen on this study. Measurements 2D Linear Measurements IVSd: 1.01 0.6-0.9/0.6-1.0 cm LVIDd: 5.04 3.9-5.3/4.2-5.9 cm LVIDd Index: 2.42 2.4-3.2/2.2-3.1 cm/m2 LVIDs: 3.06 2.0-3.6 cm LVPWd: 0.89 0.7-1.1 cm LA Diam: 3.20 2.7-3.8/3.0-4.0 cm LAIDs Index: 1.54 1.5-2.3 cm/m2 LV Mass: 214.48 67-162/88-224 g LV Mass Index: 103.12 43-95/49-115 g/m2 LVOT Diam: 2.00 3.0+(-)1.3 cm 2D Systolic Function EF 4C: 54.40 >55% EF 2C: 64.20 >55% EF BiP: 60.10 >55% Mitral Valve MV Pk E: 0.88 MV PK A: 0.77 MV Decel Time: 182.00 E/A: 1.20 E'Lateral: 9.90 E'Medial: 6.74 E/E' Med: 13.10 E/E' Lat: 8.90 PHT: 53.00 MVA PHT: 4.15 Decel [place]: 4.84 Aortic Valve AoV Pk Uli: 1.55 AoV Mn Uli: 1.12 AoV VTI: 0.35 AoV Pk Grad: 10.00 Aov Mn Grad: 5.00 PAOLO Cont.VTI: 1.89 LVOT LVOT Pk Uli: 0.98 LVOT Mn Uli: 0.72 LVOT VTI: 0.21 LVOT Pk Grad: 4.00 LVOT Mn Grad: 2.00 LVOT Diam: 2.00 LVOT Area: 3.14 Diastolic Function MV Pk E: 0.88 MV Pk A: 0.77 E/A: 1.20 E'Medial: 6.74 E/E' Med: 13.10 E' Laterial: 9.90 E/E' Lat: 8.90 Right Ventricle TAPSE (mm): 19.90 TVS' Uli: 11.10 Tricuspid Valve RA Press: 3.00 Great Vessels Aorta Sinus of Valsalva: 3.05 2.0-3.[address] [place]: 2.55 1.7-3.4 cm Ao Asc: 3.40 2.1-3.4 cm Updated in Other Vendor System with Status of Final Finn Jaime MD electronically signed on 12/15/2023 8:42:14 AM with status of Final
== END ==
LOC: HO.CARD 08:19
PROVIDERS: PCP Internal Medicine; Visit Provider Nurse Practitioner Family
DX: R55 Syncope and collapse (principal)
CPT/HCPCS: 93306

== ENCOUNTER → 2023-12-14 08:30 | Outpatient (BNV) | payer OTHER, SELFPAY | PROVIDERS: PCP Internal Medicine; Visit Provider Internal Medicine | DX: R55 Syncope and collapse (principal) | CPT/HCPCS: 93306 ==

== ENCOUNTER 2024-02-20 13:36 | Outpatient (AMB) | payer OTHER, SELFPAY ==
--- NOTE | 2024-02-20 13:41 | A.OFFVIS_ITS ---
Vital Signs 02/20/24 13:46 Height 5 ft 4 in Weight 240 lb 4.862 oz BMI 41.2 BP 137/68 Blood Pressure Location Lt brachial Position Sitting Pulse 86 Intake Visit Reasons: Abdominal pain and GERD Intake Note: Azra presents in the officce as a new patient for abdominal pains and GERD. CC: She states she was on omeprazole - she states she does not really have acid reflux. She does have issues with her abdominal and that is why she is here. She states diarrhea has been more frequently but no blood in her stools. Allergies insulin lispro [From Humalog U-100 Insulin] Allergy (Verified 02/20/24 13:47) Rash HPI HPI Abdominal pain and GERD: Details: 48 years old female with past medical history of diabetes, hyperlipidemia is h ere today for initial consultation. Patient was sent to us for evaluation of GERD, however patient reports that she has not had symptoms of GERD. Patient reports that she is having epigastric pain does not matter what she eats. Patient was sent to have multiple testing done that included CT scan, gastric emptying study. Patient was told that all her tests were normal and she was told that she has fatty liver. Patient reports that she has abdominal pain and bloating. Lately had noticed that her stools are loose, however admits that she does not feel like she is emptying completely. COUNTS INCLUDE 234 BEDS AT THE [facility] Medical History Diabetes Anxiety Hyperlipidemia Diabetes Compartment syndrome Surgical History Hx of colonoscopy History of esophagogastroduodenoscopy (EGD) H/O: hysterectomy Social History Household Members: Children Housing: Apartment Do you presently have visiting nurse or other home services: No Alcohol intake: current Alcohol intake frequency: other Cigarette Packs Per Day: 0.5 Cigarettes Per Day: 10.0 service: No Current occupational status: employed Review of Systems Const Denies weight gain and Denies weight loss ENT Reports no additional complaints, Denies dysphagia and Denies odynophagia Card Reports no additional complaints Resp Reports no additional complaints GI Reports abdominal pain, Denies belching, Denies melena, Denies bloating, Denies dysphagia, Denies excessive flatus, Denies dyspepsia, Denies heartburn, Denies diarrhea, Reports loose stools, Denies nausea, Denies odynophagia and Denies vomiting Reports no additional complaints Musc Reports no additional complaints Neuro Reports no additional complaints Psych Reports no additional complaints Endo Reports no additional complaints Physical Exam Vital Signs: Last Vital Signs Pulse 86 02/20/24 13:46 BP 137/68 02/20/24 13:46 BMI result Body Mass Index 41.2 Const General: healthy appearing and no acute distress Nutritional Appearance: obese Orientation/consciousness: patient oriented x3 Resp Effort & Inspection: normal respiratory effort, able to speak in complete sentences, no tracheal deviation and symmetric chest movement Auscultation: clear to auscultation bilaterally Cardio Rate: regular rate GI Inspection: Yes normal to inspection, No distended and Yes obesity Palpation (GI): Soft to palpation, not firm, nontender and No hepatosplenomegaly present Auscultation: normal bowel sounds General: Yes no CVA tenderness Back/Spine/Pelvis Back: no CVA tenderness Skin General skin exam: elasticity normal, turgor normal and dry skin Neuro General: patient oriented x3 Psych Appearance: grossly normal Mental Status: mental status grossly normal Assessment & Plan Assessment & Plan (1) Postprandial epigastric pain: Code(s): R10.13 - Epigastric pain (2) Abdominal bloating: Code(s): R14.0 - Abdominal distension (gaseous) (3) Abdominal pain: Code(s): R10.9 - Unspecified abdominal pain Qualifiers: Abdominal location: generalized Qualified Code(s): R10.84 - Generalized abdominal pain (4) Non-alcoholic fatty liver disease: Code(s): K76.0 - Fatty (change of) liver, not elsewhere classified Plan Will rule out celiac, check vitamin B12, folate, vitamin-D level. Thyroid studies. Will send patient for abdominal ultrasound to evaluate liver with elastography. Patient was told that she has fatty liver. Ultrasound from November of 2023 showed increased echogenicity of the liver. Patient states that she had normal liver enzymes. I will see patient in 3 months, sooner on as needed basis. She is agreeable to this plan and verbalizes understanding of instructions. She was given the opportunity to ask questions and all questions answered. Thank you for allowing me to participate in her care Orders: Orders Transglutaminase IgA 02/20/24 R10.9 - Unspecified abdominal pain TSH reflex Free T4 02/20/24 K59.00 - Constipation, unspecified Vitamin B12 and Folate 02/20/24 R19.7 - Diarrhea, unspecified Vitamin D 25-OH (D2 and D3) 02/20/24 E55.9 - Vitamin D deficiency, unspecified US abdomen sorto w elastography 02/20/24 R74.01 - Elevation of levels of liver transaminase levels Transglutaminase Ab IgG 02/20/24 R10.9 - Unspecified abdominal pain Medications: New methylcellulose (laxative) (Citrucel) take it with full glass of water 500 mg PO DAILY 90 tabs 2RF K59.00 - Constipation, unspecified sennosides (Natural Senna Laxative) 17.2 mg (2 x 8.6 mg) PO BEDTIME 60 tabs 3RF constipation K59.00 - Constipation, unspecified Coding Level of Care Code New Pt Level 4 (26700) Diagnoses Postprandial epigastric pain R10.13 Abdominal bloating R14.0 Generalized abdominal pain R10.84 Abdominal location: generalized Non-alcoholic fatty liver disease K76.0 Time Spent (min) 45 Comment 30 minutes spent with patient and additional 15 minutes spent reviewing her records
[2024-02-20 13:46] VITALS: BP 137/68; PULSE 86; BMI 41.2
== END 2024-02-20 14:33 | disposition home or self-care (01) ==
PROVIDERS: PCP Internal Medicine; Visit Provider Nurse Practitioner Family
DX: R10.13 Epigastric pain (principal); R14.0 Abdominal distension (gaseous); R10.84 Generalized abdominal pain; K76.0 Fatty (change of) liver, not elsewhere classified
CPT/HCPCS: 99204

== ENCOUNTER 2024-02-20 13:36 | Outpatient (REF) | payer OTHER, SELFPAY ==
[2024-02-20 17:07] LABS: Folate 6.5 ng/mL (> or = 4.0); Vitamin B12 359 pg/mL (200-900)
[2024-02-20 17:41] LABS: TSH reflex Free T4 1.39 uIU/mL (0.32-4.0)
[2024-02-22 07:28] LABS: Transglutaminase Ab IgG <1.0 U/mL; Transglutaminase IgA <1.0 U/mL
[2024-02-24 16:38] LABS: Vitamin D 25-OH, D2 <4 ng/mL; Vitamin D 25-OH, D3 10 ng/mL; Vitamin D 25-OH, Total 10 ng/mL (30-100)
== END 2024-02-20 13:37 | disposition home or self-care (01) ==
LOC: HO.LAB 13:36
PROVIDERS: PCP Internal Medicine; Visit Provider Nurse Practitioner Family
DX: E55.9 Vitamin D deficiency, unspecified (principal); K59.00 Constipation, unspecified; R19.7 Diarrhea, unspecified; R10.13 Epigastric pain; R14.0 Abdominal distension (gaseous); R10.84 Generalized abdominal pain; K76.0 Fatty (change of) liver, not elsewhere classified
CPT/HCPCS: 36415; 82306; 82607; 82746; 84443; 86364

== ENCOUNTER 2024-03-08 07:54 | Outpatient (REF) | payer OTHER, SELFPAY ==
--- NOTE | ~2024-03-08 | US_ITS ---
EXAMINATION: US ABDOMEN LIMITED WITH LIVER ELASTOGRAPHY CLINICAL INFORMATION: Elevated liver transaminase levels. COMPARISON: None available. TECHNIQUE: Real-time imaging of the abdominal viscera. Noninvasive ultrasound liver fibrosis assessment is performed using Sacha ElastPQ point quantification shear wave elastography (2D-SWE) with a C5-2 MHz transducer. Multiple elastography samples are obtained. FINDINGS: PANCREAS: Largely obscured from visualization by the overlying bowel gas. LIVER: The liver demonstrates normal contour and increased echogenicity. No focal lesion or intrahepatic biliary duct dilatation. The right lobe measures 19.1 cm in length. The left lobe measures 16.1 cm in length. Portal flow is towards the liver (hepatopetal). Shear wave liver elastography median stiffness is 1.85 m/s (reference: normal median stiffness is 1.3 m/s or less). IQR/median stiffness to assess sampling precision is 0.08 (reference: good quality data set is IQR/median stiffness of 0.15 or less). GALLBLADDER: Normal. The gallbladder is physiologically distended without evidence of stones, sludge, polyps, wall thickening or pericholecystic fluid. COMMON BILE DUCT: Normal in caliber measuring 0.3 cm in diameter. RIGHT KIDNEY: Normal. No hydronephrosis. No renal calculi or focal parenchymal lesions. The kidney measures 12.4 cm in maximum dimension. FREE FLUID: None. US/US abdomen sorto w elastography IMPRESSION: 1. There is generalized increase in hepatic echotexture, consistent with fatty infiltration or hepatocellular disease. Please correlate clinically. No focal hepatic mass or intrahepatic biliary dilatation is seen. 2. There is hepatomegaly. 3. Liver elastography: Measurements are suggestive of compensated advanced chronic liver disease but need further test for confirmation. 4. Technically limited ultrasound examination of the pancreas. REFERENCE: Society of Radiologists in Ultrasound Liver Stiffness Thresholds (2020): LIVER STIFFNESS THRESHOLDS: *Liver Stiffness equal or less than 1.3 m/s: High probability of being normal. *Liver Stiffness less than 1.7 m/s: In the absence of other known clinical signs, rules out compensated advanced chronic liver disease. *Liver Stiffness 1.7-2.1 m/s: Suggestive of compensated advanced chronic liver disease but need further test for confirmation. *Liver Stiffness over 2.1 m/s: Rules in compensated advanced chronic liver disease. *Liver Stiffness over 2.4 m/s: Suggestive of clinically significant portal hypertension. QUALITY OF DATA SET: *IQR/Median value equal or less than 0.15 implies a quality data set. *IQR/Median value over 0.15 implies a poor quality data set. SIGNIFICANT CHANGE FROM PRIOR EXAM: Significant change if liver stiffness measurement is 10% or greater from prior exam. OTHER CONSIDERATIONS: The stage of liver fibrosis may be overestimated in the setting of acute hepatitis, liver inflammation, elevated liver function tests, hepatic vascular congestion, obstructive cholestasis, non-fasting state, and infiltrative diseases such as amyloidosis and lymphoma. In some patients with NAFLD, the liver stiffness thresholds for compensated advanced chronic liver disease may be lower. In causes other than viral hepatitis and NAFLD, liver stiffness thresholds are not well established.
== END 2024-03-08 07:55 | disposition home or self-care (01) ==
LOC: HO.US 07:54
PROVIDERS: PCP Internal Medicine; Visit Provider Nurse Practitioner Family
DX: R74.01 Elevation of levels of liver transaminase levels (principal)
CPT/HCPCS: 76705; 76981